=== PATIENT | female | born 1980 | race Caucasian/White ===

== ENCOUNTER 2024-02-24 09:23 | Emergency (ER) | payer OTHER, SELFPAY ==
[2024-02-24 09:26] VITALS: BP 141/83
--- NOTE | 2024-02-24 10:04 | ED.GENMED ---
History of Present Illness
General
Chief Complaint: Abdominal Pain
Source: patient
Exam Limitations: none
Time Seen by Provider: 02/24/24 09:47
Travel History
Have you had any contact with someone who has COVID-19?: No
Do you have any symptoms of coronavirus? Fever > 100 degrees, chills, cough, shortness of breath, sore throat, loss of taste or smell, muscle aches, or headache?: No
History of Present Illness
History of Present Illness:
43-year-old female presents complaining of intermittent epigastric and right upper abdominal pain for the past 3 to 4 days. Sharp stabbing in nature does not radiate to the back. She notes associated nausea and vomiting with loose stools. She
denies any blood in the vomit or the stool. No prior abdominal surgical history. She tried Advil yesterday for the pain but this did not help
Phy Exam
Physical Exam
Physical Exam:
General: Uncomfortable appearing female no acute respiratory distress
HEENT: Normocephalic atraumatic
Heart: Regular rate and rhythm no murmurs
Lungs: CTA bilaterally
Abd: Soft tender to the epigastric and right upper quadrant mildly positive Duarte sign no costovertebral angle tenderness
Extremities: No cyanosis or edema
Course
Orders/Labs/Results
Orders:
Orders
02/24/24 10:02
Famotidine [Pepcid] 40 mg PO NOW STA
Ondansetron Injectable [Zofran] 4 mg IV NOW STA
US Abdomen Complete/Upper Urgent
Comment:
Reason For Exam: abd pain
02/24/24 10:03
0.9% Sodium Chloride 1000 ml [Nss] 1,000 ml IV BOLUS
02/24/24 10:06
Complete Blood Count/With Diff Urgent
Comprehensive Metabolic Panel Urgent
Lipase Urgent
02/24/24 12:07
CT Abd/pelvis W Iv Cont Urgent
Comment:
Reason For Exam: abdominal pain
Ketorolac [Toradol] 15 mg IV NOW STA
02/24/24 13:51
Urinalysis Reflex To Culture Urgent
Date Specimen was Collected: 02/24/24
Time Specimen was Collected: 13:42
Urine Microscopic Reflex Cult Urgent
Abnormal Lab Results
02/24/24 02/24/24
10:06 13:51
WBC 4.7 L 10^3/uL
(4.8-10.8)
RBC 5.49 H 10^6/uL
(4.20-5.40)
Hgb 10.7 L g/dL
(12.0-16.0)
Hct 34.8 L %
(37.0-47.0)
MCV 63.4 L fL
(81.0-99.0)
MCH 19.5 L pg
(27.0-31.0)
MCHC 30.7 L g/dL
(33.0-37.0)
RDW 17.2 H %
(11.5-14.5)
Eosinophils % 6.4 H %
(0-6)
Chloride 108 H mmol/L
(98-107)
Urine Ketones 1+ A
(Negative)
Ur Occult Blood Reflex 3+ A
(Negative)
Leukocyte Esterase Rfl Trace A
(Negative)
Urine RBC 3-6 A /HPF
(0-2)
02/24/24 10:06
02/24/24 10:06
Vital Signs
Initial and Last Documented VS:
Initial Vital Signs
Temp Pulse Resp BP Pulse Ox
97.7 F 80 16 141/83 98
02/24/24 09:26 02/24/24 09:26 02/24/24 09:26 02/24/24 09:26 02/24/24 09:26
Last Documented Vital Signs
Temp Pulse Resp BP Pulse Ox
97.7 F 80 16 141/83 98
02/24/24 09:26 02/24/24 09:26 02/24/24 09:26 02/24/24 09:26 02/24/24 09:26
MDM/Problems Addressed
Differential Diagnosis Includes:
Abdominal pain. Consider gastritis or pancreatitis versus biliary colic versus viral illness
Check labs and lipase. Fluids, zofran Pepcid, ordered. Ultrasound pending
*Critical Care Note
Total Time (30-74mins, 75-104mins- exclusive of procedures): Not Applicable
Update Note
Update Note:
Ultrasound was negative for acute finding. Patient with persistent pain. Did order CT scan of abdomen which also is mostly negative. The appendix was borderline dilated but no secondary signs to suggest appendicitis. On exam patient is nontender
to the right lower quadrant. Do not suspect appendicitis. Patient is feeling a little better after medications here. Suspect possible gastritis versus peptic ulcer disease. Recommend PPI and GI follow-up.
ED Attending Note
-
Portions of this chart may have been created with voice recognition software.� Occasional wrong word or��sound alike� substitutions may have occurred due to the inherent limitations of voice recognition software.
Discharge Plan
Departure
Patient Disposition: Home (Routine Discharge)
Date of Disposition: 02/24/24
Time of Disposition: 15:28
Patient with high blood pressure during this ER visit?: No
Discharge Problem:
Abdominal pain
Instructions: Abdominal Pain
Prescriptions:
New
omeprazole 40 mg capsule,delayed release(DR/EC)
40 mg PO DAILY 14 Days Qty: 14 0RF
ondansetron 4 mg tablet,disintegrating
4 mg PO Q8H PRN (Reason: nausea and vomiting) Qty: 10 0RF
No Action
Vitamins
Decongestant
Referrals:
Shantelle Escalante MD [Active] -
UNKNOWN - PT DOES,NOT KNOW [Family Provider] -
Activity Restrictions/Additional Instructions:
Drink plenty fluids. Continue with bland diet. Use Zofran if needed for nausea. Use omeprazole as prescribed. Return if worse otherwise follow-up with GI
Interventions
Interventions:
*Risk Screen - Suicide Last Done: 02/24/24 13:11
*General Assessment Last Done: 02/24/24 13:11
*Neglect/Abuse Screening Last Done: 02/24/24 13:11
ED- Fall Risk Assessment Last Done: 02/24/24 13:11
*ED COVID-19 Vaccine History Last Done: 02/24/24 09:26
FD-Aetocj-Nheltohtar Assessment Last Done: 02/24/24 11:52
Discharge Date and Time
Print Language: AZERI
[2024-02-24] MEDS: ZOFRAN 4 MG IV (10:49)
[2024-02-24] MEDS: NSS 1000 IV (10:49)
[2024-02-24 11:01] LABS: % Basophils 0.2 % (0-2); % Eosinophils 6.4 % (0-6); % Immature Granulocytes 0.2 % (0-0.5); % Lymphocytes 42.9 % (20.5-51.1); % Monocytes 5.5 % (1.7-9.3); % Neutrophils 44.8 % (42.2-75.2); Absolute Eosinophils 0.3 10^3/uL (0-0.7); Absolute Monocytes 0.3 10^3/uL (0.1-0.6); Absolute Neutrophils 2.1 10^3/uL (1.4-6.5); Hematocrit 34.8 % (37.0-47.0); Hemoglobin 10.7 g/dL (12.0-16.0); Mean Corp Hgb Conc. 30.7 g/dL (33.0-37.0); Mean Corpuscular Hgb 19.5 pg (27.0-31.0); Mean Corpuscular Volume 63.4 fL (81.0-99.0); Mean Platelet Volume 9.8 fL (7.4-10.4); Nucleated Red Blood Cells % 0 %; Platelet Count 374 10^3/uL (130-400); Red Blood Cell Count 5.49 10^6/uL (4.20-5.40); Red Cell Dist. Width 17.2 % (11.5-14.5); White Blood Cell Count 4.7 10^3/uL (4.8-10.8)
[2024-02-24 11:15] LABS: ALT (SGPT) 13 U/L (0-35); AST (SGOT) 19 U/L (14-36); Alkaline Phosphatase 61 U/L (38-126); Blood Urea Nitrogen 9 mg/dl (7-17); Calcium 9.2 mg/dl (8.4-10.2); Carbon Dioxide 23 mmol/L (22-30); Chloride 108 mmol/L (98-107); Glucose 95 mg/dl (70-99); Lipase 89 U/L (23-300); Potassium 4.2 mmol/L (3.5-5.1); Sodium 138 mmol/L (135-145); Total Bilirubin 0.4 mg/dl (0.2-1.3); Total Protein 7.3 g/dl (6.3-8.2); eGFR > 60.00
[2024-02-24] MEDS: PEPCID 40 MG PO (11:42)
[2024-02-24] MEDS: TORADOL 15 MG IV (12:14)
[2024-02-24 14:06] LABS: Urine Albumin Negative (Neg - Trace); Urine Bilirubin Negative (Negative); Urine Character Clear (Clear); Urine Color Yellow; Urine Glucose Negative (Negative); Urine Ketone 1+ (Negative); Urine Leukocyte Trace (Negative); Urine Nitrite Negative (Negative); Urine Occult Blood 3+ (Negative); Urine Specific Gravity 1.015 (<1.030); Urine Urobilinogen Negative (Neg - 1+)
[2024-02-24 14:44] LABS: Urine Squamous Cell >30 /LPF (Few)
[2024-02-24 15:51] VITALS: BP 126/78
== END 2024-02-24 15:52 | disposition home or self-care (01) ==
LOC: EMR 09:23
PROVIDERS: Physician Assistant; EMERGENCY PHYSICIAN Emergency Medicine
DX: R10.11 Right upper quadrant pain (principal); R10.13 Epigastric pain; R11.2 Nausea with vomiting, unspecified; R19.7 Diarrhea, unspecified
CPT/HCPCS: 99285; 96375; 96361; 96374; 74177; 76700; 80053; 81003; 81015; 83690; 85025; Q9967

== ENCOUNTER → 2024-05-23 11:47 | Outpatient (REF) | payer OTHER, SELFPAY ==
[2024-05-23 12:36] LABS: % Basophils 0.2 % (0-2); % Eosinophils 9.2 % (0-6); % Immature Granulocytes 0.2 % (0-0.5); % Lymphocytes 46.3 % (20.5-51.1); % Monocytes 6.8 % (1.7-9.3); % Neutrophils 37.3 % (42.2-75.2); Absolute Eosinophils 0.5 10^3/uL (0-0.7); Absolute Lymphocytes 2.6 10^3/uL (1.2-3.4); Absolute Monocytes 0.4 10^3/uL (0.1-0.6); Absolute Neutrophils 2.1 10^3/uL (1.4-6.5); Hematocrit 32.5 % (37.0-47.0); Hemoglobin 10.2 g/dL (12.0-16.0); Mean Corp Hgb Conc. 31.4 g/dL (33.0-37.0); Mean Corpuscular Hgb 18.9 pg (27.0-31.0); Mean Corpuscular Volume 60.1 fL (81.0-99.0); Mean Platelet Volume 9.6 fL (7.4-10.4); Nucleated Red Blood Cells % 0 %; Platelet Count 323 10^3/uL (130-400); Red Blood Cell Count 5.41 10^6/uL (4.20-5.40); White Blood Cell Count 5.6 10^3/uL (4.8-10.8)
[2024-05-23 13:05] LABS: Blood Urea Nitrogen 11 mg/dl (7-17); Calcium 9.1 mg/dl (8.4-10.2); Carbon Dioxide 22 mmol/L (22-30); Chloride 105 mmol/L (98-107); Glucose 91 mg/dl (70-99); Potassium 4.4 mmol/L (3.5-5.1); Sodium 141 mmol/L (135-145); eGFR > 60.00
== END ==
LOC: REG 11:47
PROVIDERS: ATTENDING PHYSICIAN Orthopaedic Surgery; FAMILY PHYSICIAN Nurse Practitioner
DX: Z01.818 Encounter for other preprocedural examination (principal)
CPT/HCPCS: 36415; 80048; 85025

== ENCOUNTER 2024-06-10 06:22 | Day surgery (SDC) | payer OTHER, SELFPAY ==
--- NOTE | 2024-06-03 15:14 | VNURNOTE ---
Attempted to call patient 06/02 and today to discuss SDS post-op plans. Left message requesting call back both times.
--- NOTE | 2024-06-04 10:58 | VNURNOTE ---
third attempt to contact patient to discuss pending SDS L ERIK. Left message.
--- NOTE | 2024-06-08 12:53 | VNURNOTE ---
Received call back from patient. She is aware of plan for SDS w/ [facility] 06/10 for L ERIK. She will call today for appt at outpt PT- [facility] in [place]. Tentative outpt PT start 06/15. She will obtain a rolling walker today. Instructed to
bring RW with her day of surgery. She confirms her fiance will be there day of surgery to take her home and will be available at home.
Referral accepted in [facility].
[2024-06-10] VITALS (15 sets, daily range): BP systolic 82–137; BP diastolic 49–82; PULSE 87; BMI 39.5
[2024-06-10] MEDS: TYLENOL 650 MG PO ×5 (07:40→23:03)
[2024-06-10] MEDS: BACTROBAN NASAL 1 GRAM NASAL (07:40)
[2024-06-10] MEDS: CELEBREX 200 MG PO (07:41)
--- NOTE | 2024-06-10 08:07 | PTCARENOTE ---
Patient is a difficult IV stick. 1 stick by Ludmila JOINER and unsuccessful. Awaiting IV team to start IV and draw T & S. Will monitor patient.
--- NOTE | 2024-06-10 08:48 | PTCARENOTE ---
IV team sucessfully put IV in but could not get enough blood for T and S. Phlebotomy came up to draw T & S. Will monitor patient.
[2024-06-10] MEDS: NORMOSOL-R/PLASMALYTE-A 1000 IV ×2 (08:49→11:33)
[2024-06-10] MEDS: ZOFRAN 4 MG IV ×2 (10:54→17:02)
[2024-06-10] MEDS: DILAUDID 0.25 MG IV (11:18)
--- NOTE | 2024-06-10 11:30 | W.PN.ORTHO ---
Today's Communication / Plan
-
D/c when clinically stable
Assessment
.
Distal Motor Intact: Yes
Dressing:
Clean, dry and intact.
Assessment:
The patient was initially intended to go home SDS; however, d/t strong FHx of blood clots and post-op anxiety, will admit for further observation
This patient has bandar
L hip OA s/p L ERIK w/ Dr Metz 06/10/24
- s/p R ERIK, 10/2022, at [facility]
DVT prophylaxis - ASA, b/l venous foot pumps
Post-op nausea - Zofran/Compazine prn
- Daily PPI
- Monitor
GERD - daily PPI
Iron def anemia - H&H in AM
- Start oral iron
Strong Fhx of blood clots (brother w/ multiple clots after previous LE surgery, mom - details unclear)
- No personal h/o clotting
- Denies known hematological d/o which would predispose her to clots. Does not recall any family h/o hypercoagulable w/u
- Will reach out to OS re: plasma flow devices
- ASA, frequent and early ambulation
Obesity, BMI 39.5 - would benefit from prophylactic Cefadroxil upon d/c d/t BMI >35
Anxiety
Plan
.
Surgery / Date: L ERIK w/ Dr Metz 06/10/24
DVT Prophylaxis: Aspirin
Activity:
Out of bed.
PT/OT
Discharge Plan: Home w/ Outpatient PT
Subjective
.
.:
Patient resting comfortably in PACU.
L hip pain minimal and currently well tolerated.
Reports 'feeling cold' post-procedure - warm blankets provided.
Mild nausea - IV Zofran provided.
Vital Signs and Labs
.
Vital Signs and Labs:
Temp Pulse Resp BP Pulse Ox
98.2 F 70 11 104/52 100
06/10/24 10:55 06/10/24 11:15 06/10/24 11:15 06/10/24 11:00 06/10/24 11:15
Physical Exam
-
HEENT: No pallor, cyanosis, or jaundice. Throat clear.
NECK: Supple. No JVD.
RESPIRATORY: Lungs clear to auscultation.
CVS: S1, S2 normal. RRR.�
ABDOMEN: Soft, non-tender. No distension. Obese.
EXTREMITIES: Strength equal, no calf pain with palpation/dorsiflexion. Calves soft.
MEDIEVAL ENGLISH LITERATURE PROFESSOR: AOx3. No focal deficits. trestle mechanic grossly intact
[2024-06-10] MEDS: ROXICODONE 5 MG PO (11:52)
[2024-06-10] MEDS: DILAUDID 0.5 MG IV ×3 (12:22→19:55)
--- NOTE | 2024-06-10 12:33 | PTCARENOTE ---
Patient received from PACU in bed; IVF infusing; Left hip primaseal with scant amount of sanguinous drainage; Pedal pulses weak to palpation bilaterally; Patient can lift right leg, left leg trace movement at this time; Mild loss of sensation,
patient describes pins and needle feeling to LLE; Patient denies nausea/vomiting; Patient states pain is severe and increasing, see MAR; Patient on room air; Patient awake and alert to self, place, and time; Bed in lowest position, wheels locked;
Call taylor within reach; Significant other at bedside; Care ongoing
--- NOTE | 2024-06-10 13:29 | CM ---
Reviewed the chart notes and spoke with the patient and her significant other at the bedside. CM consults for VN/homecare and advanced directives received. Provided the patient with a copy of Guide to Healthcare Decisions. VN has already
been in touch with the patient to arrange for services.
The patient resides in a two story home with one step to enter. The patient reports no DME or SNF in past, but had [facility] in the past. The patient confirmed her pharmacy of choice is the [facility]. Patient will be starting
outpatient therapy next week in [place]. CM continues to be available to patient/family and is monitoring medical plan for needs at discharge.
Plan: Discharge to home when medically stable with VN services.
[2024-06-10] MEDS: PROTONIX 40 MG PO (13:37)
[2024-06-10] MEDS: ATIVAN 0.5 MG PO ×2 (13:37→23:03)
[2024-06-10] MEDS: FEOSOL 325 MG PO (13:37)
[2024-06-10] MEDS: LIDOCAINE 4% PATCH 2 PATCH TOPICAL (14:14)
[2024-06-10] MEDS: NEURONTIN 200 MG PO ×3 (14:14→22:20)
[2024-06-10] MEDS: TORADOL 30 MG IV (14:15)
[2024-06-10] MEDS: ANCEF 5 IV ×2 (14:22→22:24)
[2024-06-10] MEDS: ROXICODONE 10 MG PO ×2 (15:13→22:19)
[2024-06-10] MEDS: ASPIRIN 325 MG PO (17:02)
[2024-06-10] MEDS: BACTROBAN 2% OINTMENT 1 APPLIC NASAL (20:02)
[2024-06-10] MEDS: COLACE 100 MG PO (20:03)
[2024-06-10] MEDS: DECADRON 4 MG PO (20:03)
[2024-06-10] MEDS: SENOKOT 17.2 MG PO (20:03)
[2024-06-10] MEDS: CYKLOKAPRON 1300 MG PO (22:20)
[2024-06-11] MEDS: TYLENOL 650 MG PO ×3 (03:47→12:15)
[2024-06-11] MEDS: ROXICODONE 10 MG PO ×2 (03:47→08:05)
[2024-06-11 03:56] VITALS: BP 136/88
[2024-06-11 06:43] LABS: Hemoglobin 8.9 g/dL (12.0-16.0)
[2024-06-11] MEDS: DILAUDID 0.5 MG IV (07:08)
[2024-06-11] MEDS: CYKLOKAPRON 1300 MG PO (07:16)
[2024-06-11] MEDS: ASPIRIN 325 MG PO (07:53)
[2024-06-11] MEDS: COLACE 100 MG PO (07:53)
[2024-06-11] MEDS: VALIUM 2 MG PO (07:53)
[2024-06-11] MEDS: CELEBREX 200 MG PO (07:53)
[2024-06-11] MEDS: SENOKOT 17.2 MG PO (07:53)
[2024-06-11] MEDS: PROTONIX 40 MG PO (07:53)
[2024-06-11] MEDS: NEURONTIN 200 MG PO (07:53)
[2024-06-11] MEDS: LIDOCAINE 4% PATCH 2 PATCH TOPICAL (07:54)
[2024-06-11] MEDS: DECADRON 4 MG PO (07:54)
[2024-06-11] MEDS: FEOSOL 325 MG PO (07:54)
[2024-06-11] MEDS: BACTROBAN 2% OINTMENT 1 APPLIC NASAL (07:54)
[2024-06-11 07:57] VITALS: BP 127/73
[2024-06-11] MEDS: NEURONTIN 100 MG PO (10:04)
[2024-06-11] MEDS: TORADOL 15 MG IV (10:04)
[2024-06-11] MEDS: DILAUDID 2 MG PO (10:04)
--- NOTE | 2024-06-11 10:20 | CM ---
Reviewed the chart notes. Patient for possible discharge today to home. Significant other will provide transportation. CM continues to be available to patient/family and is monitoring medical plan for needs at discharge.
Plan: Discharge to home with [facility] services.
--- NOTE | 2024-06-11 11:52 | W.PN.ORTHO ---
Today's Communication / Plan
-
Continue to monitor pain.
Await PT and OT recs.
D/c later today if remaining clinically stable.
Assessment
.
Distal Motor Intact: Yes
Dressing:
Scant areas of old incisional bleeding.
Assessment:
The patient was initially intended to go home SDS; however, d/t strong FHx of blood clots and post-op anxiety, will admit for further observation
This patient has bandar
L hip OA s/p L ERIK w/ Dr Metz 06/10/24
- s/p R ERIK, 10/2022, at [facility]
DVT prophylaxis - ASA, b/l venous foot pumps
Post-surgical L hip pain - pt does NOT recall pain mgmt after previous R ERIK
- PO Oxycodone switched to PO Dilaudid
- Increase Gabapentin
- Add Toradol, Valium
- Consider long acting opioids
- Continue to monitor
Post-op nausea - improved w/ Zofran/Compazine prn, daily PPI therapy
GERD - daily PPI
Iron def anemia - H&H 10.2 pre-op -> 8.9 POD 1
- Start oral iron
- Asymptomatic, hemodynamically stable
Strong Fhx of blood clots (brother w/ multiple clots after previous LE surgery, mom - details unclear)
- No personal h/o clotting
- Denies known hematological d/o which would predispose her to clots. Does not recall any family h/o hypercoagulable w/u
- inside sales specialist at [facility] aware of this patient. Will reach out to set up plasma flow devices
- ASA, frequent and early ambulation
Obesity, BMI 39.5 - would benefit from prophylactic Cefadroxil upon d/c d/t BMI >35
Anxiety
Plan
.
Surgery / Date: L ERIK w/ Dr Metz 06/10/24
DVT Prophylaxis: Aspirin
Activity:
Out of bed.
PT/OT
Discharge Plan: Home w/ Outpatient PT
Subjective
.
.:
Patient examined sitting in her chair this AM.
L hip pain exacerbated overnight - medications adjusted.
Denies any other new significant complaints.
Vital Signs and Labs
.
Vital Signs and Labs:
Lab Results
06/11/24 05:09
Temp Pulse Resp BP Pulse Ox
98.3 F 90 18 127/73 99
06/11/24 07:57 06/11/24 07:57 06/11/24 07:57 06/11/24 07:57 06/11/24 07:57
Physical Exam
-
HEENT: No pallor, cyanosis, or jaundice. Throat clear.
NECK: Supple. No JVD.
RESPIRATORY: Lungs clear to auscultation.
CVS: S1, S2 normal. RRR.�
ABDOMEN: Soft, non-tender. No distension. Obese.
EXTREMITIES: Strength equal, no calf pain with palpation/dorsiflexion. Calves soft.
ALKYLATION OPERATOR: AOx3. No focal deficits. mash tub cooker grossly intact
[2024-06-11 12:04] VITALS: BP 129/76
[2024-06-11 12:12] VITALS: BP 123/75; BP 129/76; PULSE 83
--- NOTE | 2024-06-11 12:56 | W.DS.TRANS ---
DC Summary - Web Database Developer
-
Discharge Instructions:
Sleep Apnea Risk Low
Discharge Diagnosis/Procedures L hip OA s/p L ERIK w/ Dr Metz 06/10/24
Diet Other diet
Additional Diets Diabetic carb controlled x1 week for wound
healing/infection prevention
Activity As tolerated,With Walker
Driving Restrictions Not until seen by your Dr
Bathing Restrictions OK to Shower
Other Services PT,VN
Wound Care Dressing to be removed 1 week post-surgery.
[place] to be removed in 2 weeks at surgeon's
office.
Instructions:
Stand-Alone Forms: Total Hip/Knee Replacement D/C
Changes to Home Medications: Yes
Discharge Medications:
DC Medications w/original date entered in [employer]
methylphenidate HCl 36 mg tablet,extended release 24 hr (Concerta) 36 mg PO DAILY 06/04/24
mupirocin 2 % topical ointment 1 applic topical BID 06/04/24
Saccharomyces boulardii 250 mg capsule (Florastor) 250 mg PO BID #14 caps 06/10/24
acetaminophen 500 mg tablet (Tylenol Extra Strength) 1,000 mg (2 x 500 mg) PO Q6H #60 tabs 06/10/24
aspirin 325 mg tablet 325 mg PO DAILY #30 tabs 06/10/24
cefadroxil 500 mg capsule 500 mg PO BID #14 caps 06/10/24
celecoxib 100 mg capsule (Celebrex) 100 mg PO BID #30 caps 06/10/24
dexamethasone 4 mg tablet 4 mg PO Q12H Anti-inflammatory #7 tabs 06/10/24
docusate sodium 100 mg capsule (Colace) 100 mg PO BID #30 caps 06/10/24
omeprazole magnesium 20 mg tablet,delayed release (Prilosec OTC) 20 mg PO DAILY #1 tab 06/10/24
ondansetron HCl 4 mg tablet 4 mg PO Q6H PRN nausea and vomiting #30 tabs 06/10/24
sennosides 8.6 mg tablet (senna) 17.2 mg (2 x 8.6 mg) PO BID #30 tabs 06/10/24
diazepam 2 mg tablet 2 mg PO BID PRN muscle spasms/anxiety #10 tabs 06/11/24
ferrous sulfate 325 mg (65 mg iron) tablet (FeroSul) 325 mg PO DAILY #30 tabs 06/11/24
gabapentin 300 mg capsule 300 mg PO TID neuropathic pain #15 caps 06/11/24
hydromorphone 2 mg tablet 2 - 4 mg (1 - 2 x 2 mg) PO Q4H PRN moderate-severe pain #30 tabs 06/11/24
lidocaine 4 % topical patch 2 patch topical DAILY #30 ea 06/11/24
Home Medication Changes
acetaminophen 500 mg tablet (Tylenol Extra Strength) 1,000 mg (2 x 500 mg) PO Q6H #60 tabs 06/10/24
aspirin 325 mg tablet 325 mg PO DAILY #30 tabs 06/10/24
cefadroxil 500 mg capsule 500 mg PO BID #14 caps 06/10/24
celecoxib 100 mg capsule (Celebrex) 100 mg PO BID #30 caps 06/10/24
dexamethasone 4 mg tablet 4 mg PO Q12H Anti-inflammatory #7 tabs 06/10/24
docusate sodium 100 mg capsule (Colace) 100 mg PO BID #30 caps 06/10/24
omeprazole magnesium 20 mg tablet,delayed release (Prilosec OTC) 20 mg PO DAILY #1 tab 06/10/24
ondansetron HCl 4 mg tablet 4 mg PO Q6H PRN nausea and vomiting #30 tabs 06/10/24
sennosides 8.6 mg tablet (senna) 17.2 mg (2 x 8.6 mg) PO BID #30 tabs 06/10/24
diazepam 2 mg tablet 2 mg PO BID PRN muscle spasms/anxiety #10 tabs 06/11/24
ferrous sulfate 325 mg (65 mg iron) tablet (FeroSul) 325 mg PO DAILY #30 tabs 06/11/24
gabapentin 300 mg capsule 300 mg PO TID neuropathic pain #15 caps 06/11/24
hydromorphone 2 mg tablet 2 - 4 mg (1 - 2 x 2 mg) PO Q4H PRN moderate-severe pain #30 tabs 06/11/24
lidocaine 4 % topical patch 2 patch topical DAILY #30 ea 06/11/24
Pending Results: No
== END 2024-06-11 14:41 | disposition home health service (06) ==
LOC: SDS 06:22
PROVIDERS: Physician Assistant; ATTENDING PHYSICIAN Orthopaedic Surgery; FAMILY PHYSICIAN Nurse Practitioner
DX: M16.12 Unilateral primary osteoarthritis, left hip (principal)
CPT/HCPCS: 27130; 73502; 85014; 85018; 86850; 86900; 86901; 87070; 97110; 97116; 97162; 97166; 97530; 97535; C1776

== ENCOUNTER 2024-08-25 15:20 | Inpatient (IN) | payer OTHER, SELFPAY ==
[2024-08-25 12:45] VITALS: BP 124/82; BP_SYST 72
[2024-08-25 13:20] VITALS: BP 127/80
[2024-08-25 13:41] LABS: % Basophils 0.4 % (0-2); % Eosinophils 1.8 % (0-6); % Immature Granulocytes 0.4 % (0-0.5); % Lymphocytes 41.5 % (20.5-51.1); % Monocytes 7.3 % (1.7-9.3); % Neutrophils 48.6 % (42.2-75.2); Absolute Eosinophils 0.1 10^3/uL (0-0.7); Absolute Lymphocytes 2.1 10^3/uL (1.2-3.4); Absolute Monocytes 0.4 10^3/uL (0.1-0.6); Absolute Neutrophils 2.5 10^3/uL (1.4-6.5); Hematocrit 31.9 % (37.0-47.0); Hemoglobin 9.5 g/dL (12.0-16.0); Mean Corp Hgb Conc. 29.8 g/dL (33.0-37.0); Mean Corpuscular Hgb 18.1 pg (27.0-31.0); Mean Corpuscular Volume 60.9 fL (81.0-99.0); Mean Platelet Volume 9.5 fL (7.4-10.4); Nucleated Red Blood Cells % 0 %; Platelet Count 481 10^3/uL (130-400); Red Blood Cell Count 5.24 10^6/uL (4.20-5.40); Red Cell Dist. Width 18.6 % (11.5-14.5); White Blood Cell Count 5.1 10^3/uL (4.8-10.8)
[2024-08-25 13:56] LABS: Erythrocyte Sed Rate 27 mm/hour (0-20)
[2024-08-25 14:58] LABS: ALT (SGPT) 17 U/L (0-35); AST (SGOT) 23 U/L (14-36); Albumin 4.4 g/dl (3.5-5.0); Alkaline Phosphatase 60 U/L (38-126); Blood Urea Nitrogen 5 mg/dl (7-17); Calcium 9.4 mg/dl (8.4-10.2); Carbon Dioxide 26 mmol/L (22-30); Chloride 102 mmol/L (98-107); Glucose 106 mg/dl (70-99); Potassium 4.7 mmol/L (3.5-5.1); Sodium 139 mmol/L (135-145); Total Bilirubin 0.3 mg/dl (0.2-1.3); Total Protein 7.6 g/dl (6.3-8.2); eGFR > 60.00
[2024-08-25 15:17] LABS: C-Reactive Protein < 5.00 mg/L (0.0-10.00)
[2024-08-25 15:30] VITALS: BP 118/82
--- NOTE | 2024-08-25 15:51 | W.PN.UPDATE ---
Update Note
Progress Note Update
Pt seen by me and radha rojas earlier today for sudden drainage of pus from her wound s/p total hip by me at 06/10/24. She did not have significant recent hip pain postop and recovered very well after the surgery. The onset of the drainage
today was completely unexpected. She denies signs of systemic sepsis.
I recommended urgent labs and hip aspiration with high degree of concern for prosthetic joint infection.
She has had the hip aspiration with no fluid yield from the hip joint. Some fluid was apirated from the superficial incision.
Her crp is <5 and sed rate 27,.
At this point she should be admitted to for I&D of her wound at a bare minimum. Also assessment of possible PJI will be made at that time and if so she would need hip revision surgery.
a ct scan will be helpful to acertain if there is an abcess and if so is it superficial or communicating with the joint.
I went over this in a preliminary manner in the office but since it's a lot to digest we will speak w. her more in the am as more data comes in. She should be NPO p mn for surgery tomorrow and no chemical anticoagulation at this time.
Greatly appreciate the hospitalist Dr. Enriquez willingness to admit patient. She may benefit from ID consult and antibiotics can be per their preference, either now or wait till more intraop cultures. Of note this patient has not been on abx
since the surgery 2+ months ago.
--- NOTE | 2024-08-25 16:21 | HPS.HSE ---
Addendum entered and electronically signed by Zoe Lerma MD 08/25/24 16:29:
Patient has a history of anemia since her prior right hip surgery. She has had intermittent rectal bleeding thought to be hemorrhoidal but no bleeding within the past week. There is plan for outpatient endoscopy.
Original Note:
Family Physician
-
Family Physician: Miller Metz
Chief Complaint
-
infected hip
History of Present Illness
44-year-old female past medical history of arthritis of the left hip status post left total hip replacement by Dr. Metz on 06/10/2024, ADHD, iron deficiency anemia, ongoing rectal bleeding likely hemorrhoidal, obesity, GERD, presenting with
concern for postoperative wound infection of the left hip.
Patient underwent total left hip replacement by Dr. Metz on 06/10. She was told her recovery would be slow due to severe arthritis. Over the past 2 days she has noticed that the wound site has become red, swollen. Today serosanguineous fluid
was draining out of the wound. She denies any fevers or chills. She denies any numbness or tingling or focal weakness of the lower extremity.
Strong family history of blood clots with brother with multiple clots.
She drinks alcohol occasionally. She occasionally smokes.
Medical History
Past Medical History
Past Medical History: Reports Other (left hip status post left total hip replacement by Dr. Metz on 06/10/2024, ADHD, iron deficiency anemia, ongoing rectal bleeding likely hemorrhoidal, obesity, GERD,)
Past Surgical History: Reports Other (hip replacements bilterally, c section )
Social History
Tobacco: Non-smoker
Alcohol: Occasional
Drug: None
Family History
Family History: Not pertinent
Allergies / Home Medications
Allergies reflects when Allergies were last updated in [employer].
Home Medications with original date entered in [employer]
Allergy/Medication List:
Allergies
Allergy/AdvReac Type Severity Reaction Status Date / Time
mushroom Allergy Hives Verified 06/10/24 07:33
Home Medications
methylphenidate HCl 36 mg tablet,extended release 24 hr (Concerta) 36 mg PO DAILY 06/04/24
mupirocin 2 % topical ointment 1 applic topical BID 06/04/24
Saccharomyces boulardii 250 mg capsule (Florastor) 250 mg PO BID #14 caps 06/10/24
acetaminophen 500 mg tablet (Tylenol Extra Strength) 1,000 mg (2 x 500 mg) PO Q6H #60 tabs 06/10/24
aspirin 325 mg tablet 325 mg PO DAILY #30 tabs 06/10/24
cefadroxil 500 mg capsule 500 mg PO BID #14 caps 06/10/24
celecoxib 100 mg capsule (Celebrex) 100 mg PO BID #30 caps 06/10/24
dexamethasone 4 mg tablet 4 mg PO Q12H Anti-inflammatory #7 tabs 06/10/24
docusate sodium 100 mg capsule (Colace) 100 mg PO BID #30 caps 06/10/24
omeprazole magnesium 20 mg tablet,delayed release (Prilosec OTC) 20 mg PO DAILY #1 tab 06/10/24
ondansetron HCl 4 mg tablet 4 mg PO Q6H PRN nausea and vomiting #30 tabs 06/10/24
sennosides 8.6 mg tablet (senna) 17.2 mg (2 x 8.6 mg) PO BID #30 tabs 06/10/24
diazepam 2 mg tablet 2 mg PO BID PRN muscle spasms/anxiety #10 tabs 06/11/24
ferrous sulfate 325 mg (65 mg iron) tablet (FeroSul) 325 mg PO DAILY #30 tabs 06/11/24
gabapentin 300 mg capsule 300 mg PO TID neuropathic pain #15 caps 06/11/24
hydromorphone 2 mg tablet 2 - 4 mg (1 - 2 x 2 mg) PO Q4H PRN moderate-severe pain #30 tabs 06/11/24
lidocaine 4 % topical patch 2 patch topical DAILY #30 ea 06/11/24
Review of Systems
-
History Source: Patient
A 12 point ROS was completed and negative except as noted: Yes
Constitutional: Reports No Symptoms
EENT: Reports No Symptoms
Respiratory: Reports No Symptoms
Cardiac: Reports No Symptoms
Abdomen/GI: Reports No Symptoms
: Reports No Symptoms
Musculoskeletal: Reports See HPI
Skin: Reports No Symptoms
Neurological: Reports No Symptoms
Endocrine: Reports No Symptoms
Hematologic/Lymphatic: Reports No Symptoms
Psych: Reports No Symptoms
Physical Exam
Vital Signs
Vital Signs
Temp Pulse Resp BP Pulse Ox
98.4 F 67 20 127/80 100
08/25/24 12:45 08/25/24 13:20 08/25/24 13:20 08/25/24 13:20 08/25/24 12:45
Physical Exam
General: Well Developed, Well Nourished and No Apparent Distress
HEENT: NormoCephalic, Moist mucous membranes and Atraumatic
Respiratory: Clear
Cardiac: S1/S2 and Regular Rhythm; No Murmur or Rub
GI: Soft, Non Tender, Non Distended and Normal Bowel Sounds; No Organomegaly
Rectal: Deferred by Provider
Musculoskeletal: No Clubbing, No Cyanosis and No Edema
Skin: No Rash
Neuro: Nonfocal/grossly intact
Laboratory Results
-
08/25/24 13:13
08/25/24 13:13
Laboratory Results
Total Bilirubin 0.3 mg/dl (0.2-1.3) 08/25/24 13:13
AST 23 U/L (14-36) 08/25/24 13:13
ALT 17 U/L (0-35) 08/25/24 13:13
Alkaline Phosphatase 60 U/L (38-126) 08/25/24 13:13
Data Reviewed
-
Lab Data: Labs Reviewed by me
Old Records: Reviewed
Impression/Plan
-
IMPRESSION:
PLAN:
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
# Left hip osteoarthritis status post total hip replacement on 06/10
-Patient underwent aspiration of hip but fluid from the joint was not obtained, superficial fluid adjacent to the incision was obtained
-Await fluid studies
-N.p.o. past midnight for irrigation and debridement by Ortho tomorrow
-X-ray, CT scan per Ortho
-Hold off antibiotics for now likely until intraoperative cultures can be obtained
-ID consulted and recommended holding off antibiotics for now and if patient becomes septic then check 2 blood cultures and then vancomycin/cefepime
-Tylenol, continue Dilaudid for pain as needed
History of iron deficiency anemia
-Hemoglobin 9.5 better than recent times
-Plan for outpatient colonoscopy
History of occasional rectal bleeding likely hemorrhoidal
-No bleeding in the past week
History of constipation
ADHD
-Continue Concerta
Strong family history of blood clots
Obesity
GERD
-Continue omeprazole
Full code
DVT prophylaxis�SCDs
N.p.o. past midnight
[2024-08-25] MEDS: DILAUDID 0.5 MG IV (18:39)
--- NOTE | 2024-08-25 19:13 | CON.ORTHO ---
Consultation
-
Date/Time Consultation Requested: N/a
Date/Time Consultation Performed: 08/25/2024
Requesting Provider: n/a
Performing Provider: Eunice Crisostomo PA-C, for Dr. Miller Metz
Reason for Consultation: L hip drainage from incision s/p left ERIK
Consultation - Orthopedics
History
HPI: Juju is a 44 year old female who presented to our outpatient office earlier this morning complaining of sudden onset drainage from her left hip now s/p left ERIK on 06/10/2024. This was performed under the direction of Dr. Metz at [place] [facility]. She reports pain and swelling in the lateral aspect of her hip that has been present since the surgery. Last night, she experienced a puffy area about the incision and this morning noted a copious about of pinkish drainage from a
pinpoint area in the incision. She immediately presented to our office and was noted to have purulent drainage oozing from the incision. She denies any pain in the groin, fevers, chills, or flu like symptoms. She was sent urgently for IR
aspiration of the hip as well as labs. Due to the copious amount of drainage, she was advised to present to the hospital for admission and further work up for possible PJI.
PMH: Significant for chronic anemia, obesity, anxiety.
PSHx: L ERIK 06/10/24, R ERIK 2022, c section.
Social history: Lives with spouse. Denies tobacco use.
Family history: significant for DVT/PE in brother post operatively.
Review of systems: All systems reviewed and negative except for those mentioned in HPI.
Allergies / Home Medications
Allergy/AdvReac Type Severity Reaction Status Date / Time
mushroom Allergy Hives/SWELL Verified 08/25/24 18:39
ING;
�Medication �Instructions �Recorded
methylphenidate HCl 36 mg 36 mg PO DAILY 06/04/24
tablet,extended release 24 hr
(Concerta)
mupirocin 2 % topical ointment 1 applic topical BID 06/04/24
Saccharomyces boulardii 250 mg 250 mg PO BID #14 caps 06/10/24
capsule (Florastor)
acetaminophen 500 mg tablet 1,000 mg (2 x 500 mg) PO Q6H #60 06/10/24
(Tylenol Extra Strength) tabs
aspirin 325 mg tablet 325 mg PO DAILY #30 tabs 06/10/24
cefadroxil 500 mg capsule 500 mg PO BID #14 caps 06/10/24
celecoxib 100 mg capsule (Celebrex) 100 mg PO BID #30 caps 06/10/24
dexamethasone 4 mg tablet 4 mg PO Q12H Anti-inflammatory #7 06/10/24
tabs
docusate sodium 100 mg capsule 100 mg PO BID #30 caps 06/10/24
(Colace)
omeprazole magnesium 20 mg 20 mg PO DAILY #1 tab 06/10/24
tablet,delayed release (Prilosec
OTC)
ondansetron HCl 4 mg tablet 4 mg PO Q6H PRN nausea and 06/10/24
vomiting #30 tabs
sennosides 8.6 mg tablet (senna) 17.2 mg (2 x 8.6 mg) PO BID #30 06/10/24
tabs
diazepam 2 mg tablet 2 mg PO BID PRN muscle 06/11/24
spasms/anxiety #10 tabs
ferrous sulfate 325 mg (65 mg 325 mg PO DAILY #30 tabs 06/11/24
iron) tablet (FeroSul)
gabapentin 300 mg capsule 300 mg PO TID neuropathic pain #15 06/11/24
caps
hydromorphone 2 mg tablet 2 - 4 mg (1 - 2 x 2 mg) PO Q4H PRN 06/11/24
moderate-severe pain #30 tabs
lidocaine 4 % topical patch 2 patch topical DAILY #30 ea 06/11/24
Vital Signs / Lab Results
Temp Pulse Resp BP Pulse Ox
98.6 F 87 20 118/82 99
08/25/24 15:30 08/25/24 15:30 08/25/24 15:30 08/25/24 15:30 08/25/24 15:30
08/25/24 13:13
08/25/24 13:13
Physical examination:
General: AAO x 4, NAD at rest.
HEENT: AT/NC, neck supple.
Heart: RRR.
Lungs: non labored breathing on room air, no audible wheezing.
Left hip: mild diffuse swelling. No erythema or warmth. Pinpoint spot in proximal incision with active purulent drainage. ROM hip without pain. Limping gait, no use of assistive device.
Assessment / Plan
Assessment: Left hip drainage from incision, concern for PJI
Plan: Unfortunately, there was a copious amount of purulent drainage from Lacy's left hip incision today. She was sent for IR aspiration and no fluid was obtained from the joint and minimal fluid obtained from a small soft tissue collection. This
was sent for culture and sensitivity. Lab work revealed mildly elevated ESR and normal CRP. Regardless of these findings, there is a strong concern for PJI. She will be admitted to the hospitalists service and placed on the OR schedule for a left
hip possible I&D vs. revision left ERIK tomorrow under the direction of Dr. Metz. A left hip x-ray and CT scan w/wo contrast was ordered to evaluate for possible abscess or joint communication with the fluid obtained from the soft tissues
earlier. She will be NPO after midnight tonight. IV irrigation and TXA ordered and event management consultant to OR. ID has been consulted for recommendations on antibiotics going forward. Will hold on any DVT prophylaxis until after surgery. January WBAT. Consent
for surgery to be obtained tomorrow AM. Patient was updated with findings and all questions were answered.
[2024-08-25 23:20] VITALS: BP 117/70
[2024-08-26] VITALS (15 sets, daily range): BP systolic 91–134; BP diastolic 65–79; BMI 38.2
[2024-08-26] MEDS: DILAUDID 0.5 MG IV ×5 (00:55→21:31)
--- NOTE | 2024-08-26 06:05 | W.PN.UPDATE ---
Update Note
Progress Note Update
Patient seen and evaluated by Orthopedic surgery this morning. Plan for LEFT hip I&D, possible revision of LEFT total hip arthroplasty today under the direction of Dr. Metz.
Surgical and blood consents obtained and placed in patient's chart. CT scan completed.
Preliminary Gram stain revealing no WBC, no organisms seen. Culture pending.
IV irrigation and TXA ordered and eye care professional to OR. ID has been consulted for recommendations on antibiotics going forward. LEFT hip marked as the correct surgical extremity.
Orthopedic surgery will continue to follow.
[2024-08-26 07:03] LABS: Hematocrit 30.2 % (37.0-47.0); Hemoglobin 8.8 g/dL (12.0-16.0); Mean Corp Hgb Conc. 29.1 g/dL (33.0-37.0); Mean Corpuscular Hgb 17.7 pg (27.0-31.0); Mean Corpuscular Volume 60.9 fL (81.0-99.0); Platelet Count 419 10^3/uL (130-400); Red Blood Cell Count 4.96 10^6/uL (4.20-5.40); Red Cell Dist. Width 18.2 % (11.5-14.5); White Blood Cell Count 4.7 10^3/uL (4.8-10.8)
[2024-08-26 07:22] LABS: ALT (SGPT) 15 U/L (0-35); AST (SGOT) 19 U/L (14-36); Albumin 3.7 g/dl (3.5-5.0); Alkaline Phosphatase 42 U/L (38-126); Blood Urea Nitrogen 8 mg/dl (7-17); Calcium 8.7 mg/dl (8.4-10.2); Carbon Dioxide 24 mmol/L (22-30); Chloride 101 mmol/L (98-107); Glucose 125 mg/dl (70-99); Potassium 4.1 mmol/L (3.5-5.1); Sodium 135 mmol/L (135-145); Total Bilirubin 0.3 mg/dl (0.2-1.3); Total Protein 6.6 g/dl (6.3-8.2); eGFR > 60.00
[2024-08-26 07:38] LABS: % Basophils 0.2 % (0-2); % Eosinophils 2.8 % (0-6); % Immature Granulocytes 0.4 % (0-0.5); % Lymphocytes 55.6 % (20.5-51.1); % Monocytes 7.4 % (1.7-9.3); % Neutrophils 33.6 % (42.2-75.2); Absolute Eosinophils 0.1 10^3/uL (0-0.7); Absolute Lymphocytes 2.6 10^3/uL (1.2-3.4); Absolute Monocytes 0.4 10^3/uL (0.1-0.6); Absolute Neutrophils 1.6 10^3/uL (1.4-6.5); Nucleated Red Blood Cells % 0 %
--- NOTE | 2024-08-26 09:42 | CM ---
Reviewed the chart notes and spoke with the patient and her spouse at the bedside. The patient anticipates going to the OR today for LEFT hip I&D, possible revision of LEFT total hip arthroplasty today under the direction of Dr. Metz. The
patient had hip replacement 06/2024. The patient resides with her spouse in a two story home with two steps to enter. The patient reports having a cane and rolling walker in the home. The patient has had [facility] in the past, but no SNF. The
patient confirmed her pharmacy of choice is the [facility] [address] and her PCP is LUIS Sosa. CM continues to be available to patient/family and is monitoring medical plan for needs at discharge.
Plan: Discharge plans will depend on the patient's progress.
--- NOTE | 2024-08-26 12:19 | W.PN.HOSP.TC ---
Today's Communication/Plan
-
see outlined plan
Assessment / Plan
Assessment / Plan
Assessment:
L hip drainage c/f post-operative L hip infection and/or infected prosthesis
Hx of L hip OA s/p THR 06/10 (Dr. Metz)
- CT: Limited by metal artifact despite metal artifact reduction technique. Mild fluid distention of the greater trochanteric bursa. This demonstrates mild wall thickening, though without apparent significant enhancement. This may be reactive in
nature as opposed to infectious bursitis. Irregular linear soft tissue attenuation within the superficial and deep subcutaneous fat extending to the superficial fascial layer, consistent with scarring along the incision site. No other soft tissue
fluid collection is identified. No CT evidence to suggest osteomyelitis.
- bedside aspiration - reportedly no fluid from joint but superficial fluid obtained - awaiting culture
- NPO today for L hip I&D - operative cultures will be obtained. Discussed with Ortho.
- ID consulted for antibiotic management
- continue pain control
History of iron deficiency anemia
History of occasional rectal bleeding likely hemorrhoidal
- follow Hb, 8.8 most recently
- check anemia indices
- outpatient Colonoscopy planned
History of constipation
ADHD
- continue Concerta
Strong family history of blood clots
Obesity
GERD
- continue omeprazole
DVT ppx: SCDs
Code: Full
Anticipated Discharge: > 48 hours
Subjective/Interval History
-
Date of Service: August 26, 2024
reports L hip pain and stiffness
no fever/chills
Objective Data
-
Labs:
Laboratory Results
08/26/24
06:17
WBC 4.7 L
Hgb 8.8 L
Hct 30.2 L
Plt Count 419 H
Sodium 135
Potassium 4.1
Chloride 101
Carbon Dioxide 24
BUN 8
Creatinine 0.6
Glucose 125 H
Calcium 8.7
Total Bilirubin 0.3
AST 19
ALT 15
Alkaline Phosphatase 42
Vital Signs:
Vital Signs
Temp Pulse Resp BP Pulse Ox
97.8 F 71 18 120/75 99
08/26/24 07:49 08/26/24 07:49 08/26/24 07:49 08/26/24 07:49 08/26/24 07:49
I&O
08/25/24 08/26/24 08/27/24
06:59 06:59 06:59
Intake Total 1200 / 1200
Balance 1200 / 1200
Physical Exam
-
General: No Apparent Distress
HEENT: Normocephalic and Atraumatic
Respiratory: Negative Wheezes
Cardiac: Regular Rhythm and S1/S2
GI: Soft
Genito-urinary: No Costovertebral Tender
Musculoskeletal: Other (mild diffuse swelling. No erythema or warmth. Pinpoint spot in proximal incision with active purulent drainage. ROM hip without pain. Limping gait, no use of assistive device. )
Neuro: AO x 3
Hematologic / Lymphatic: No Lymphadenopathy
Data Reviewed
-
Total Time Spent with Patient (in minutes): 51
Labs: Labs Reviewed by me
[2024-08-26 13:20] LABS: Total Iron Binding Capacity 410 ug/dl (265-497)
--- NOTE | 2024-08-26 13:27 | W.PN.UPDATE ---
Update Note
Progress Note Update
I had a length counselling and q/a w. patient and her significant other. I described how the drainage is almost certainly indicative of infection even though aspiration is no growth. I discussed how infection in a prosthesis cannot be cured by
abx alone and surgical treatment is required and this could be I&D for a superficial infection or removal of the hardware for a deep infection. I discussed abx spacers and one stage revision and the pros and cons. Since aspiration of the joint
yeilded no fluid and ct scan shows no joint fluid I will only know if the total hip is involved after I get started w. surgery . She expressed consent to proceed as I deep appropriate intraop. All questions answered during this approx 30 min
session.
[2024-08-26 13:43] LABS: Iron < 20 ug/dl (37-170)
--- NOTE | 2024-08-26 14:37 | CON.ID ---
Consultation
-
Date/Time Consultation Requested: 08/25/24 16:25
Date/Time Consultation Performed: 08/26/24 14:38
Requesting Provider: Dr Lerma
Performing Provider: Dr Conh
Reason for Consultation: suspected PJI
Chief Complaint / Past History
Chief Complaint
probable PJI
History of Present Illness
Ms Delvalle is a 44 year old female with history of class II obesity history of L hip arthritis who is s/p L total hip replacement 06/10/24 there were no immediate complications however over the last two day the wound site became red, swollen and had
some bloody drainage. She covered the count and contacted her orthopedist Dr Metz and was seen in his office the next day. She noted swelling and pain in the L hip - no fevers or chills.
Since arrival here she has been afebrile, bp stable, wbc initially 5.1 and today 4.7, hgb 8.8, plt 419, no L shift, esr 27, na 135, cr 0.6, t bili 0.3, ast 23, alt 17, alk phos 60, 08/25 aspiration of the right hip - no fluid and with lavage no
sample. Superficial fluid collection aspiration with no wbc and no organisms, 08/25 CT lower extremity without contrast: 'Mild fluid distention of the greater trochanteric bursa. This demonstrates mild wall thickening, though without apparent
significant enhancement. This may be reactive in nature as opposed to infectious bursitis.' she was taken today for I&D and a superficial wound cavity was encountered without evidence of tracking deeper, tissue culture sent from the OR
Past History
Additional Past Medical History:
left hip status post left total hip replacement by Dr. Metz on 06/10/2024, ADHD, iron deficiency anemia, ongoing rectal bleeding likely hemorrhoidal, obesity, GERD
Additional Past Surgical History:
hip replacements bilterally, c section
Allergy History:
mushroom Allergy (Verified 08/25/24 18:39)
Hives/SWELLING;
Medications Reviewed: Yes
Social History
Tobacco: Non-Smoker
Alcohol: Occasional
Drug: None
Family History
Family History: Not Pertinent
Review of Systems
Review of Systems
General: Negative Fever or Chills
All systems: All other systems were reviewed and were negative
Vital Signs
Temp Pulse Resp BP Pulse Ox
97.8 F 71 18 120/75 99
08/26/24 07:49 08/26/24 07:49 08/26/24 07:49 08/26/24 07:49 08/26/24 07:49
Physical Exam
Physical Exam
Constitutional: No Acute Distress
Cardiovascular: Regular Rate and S1/S2; Negative Murmur or Rub
Pulmonary: Clear and Symmetric; Negative Wheezes, Rales or Rhonchi
Gastrointestinal: Soft, Non Tender, Non Distended and Normal Bowel Sounds
Skin: Warm and Dry; Negative Rash or Jaundice
Wound: Other (dressing with small amount of strikethrough)
Lab / Diagnostic Study Results
08/26/24 06:17
08/26/24 06:17
Abs Immat Gran (auto) 0.0 10^3/uL (0-0.05) 08/26/24 06:17
Absolute Neuts (auto) 1.6 10^3/uL (1.4-6.5) 08/26/24 06:17
Absolute Lymphs (auto) 2.6 10^3/uL (1.2-3.4) 08/26/24 06:17
Absolute Monos (auto) 0.4 10^3/uL (0.1-0.6) 08/26/24 06:17
Absolute Basos (auto) 0.0 10^3/uL (0-0.2) 08/26/24 06:17
Immature Gran % 0.4 % (0-0.5) 08/26/24 06:17
Neutrophils % 33.6 % (42.2-75.2) L 08/26/24 06:17
Lymphocytes % 55.6 % (20.5-51.1) H 08/26/24 06:17
Monocytes % 7.4 % (1.7-9.3) 08/26/24 06:17
Eosinophils % 2.8 % (0-6) 08/26/24 06:17
Basophils % 0.2 % (0-2) 08/26/24 06:17
ESR 27 mm/hour (0-20) H 08/25/24 13:13
C-Reactive Protein < 5.00 mg/L (0.0-10.00) 08/25/24 13:13
Microbiology Results
Micro:
08/25/24 12:45 Body Fluid Culture - Preliminary
Fluid No Growth After 18-24 Hours
Gram Stain - Preliminary
Assessment / Plan
Superficial Surgical Site Infection
Class II obesity
- cultures sent from the OR will follow up
- aspiration of the hip joint - no fluid even with lavage - not suggestive of pji
- aspiration of more superficial fluid collection - no growth to date
- start vancomycin and cefepime
follow clinically
[2024-08-26 15:22] LABS: Ferritin 6.9 ng/ml (6.24-137)
--- NOTE | 2024-08-26 15:48 | W.PN.UPDATE ---
Update Note
Progress Note Update
The surgery is complete the infection was definitively in the superficial layer of sutures. I completely excised it to a circumferential layer of healthy tissue with no deep communication to the joint. I did not open the joint or fascia so as not
to risk contamination of the prosthesis. this is consistent w. no fluid on aspiration and also no joint fluid on ct scan and also not much pain in the hip and also crp <5. I sent 3 superficial cultures from the superficial wound cavity and
these were sent prior to abx.
[2024-08-26 15:53] LABS: Folate 8.8 ng/ml (2.76-20); Vitamin B12 963 pg/ml (239-931)
[2024-08-26] MEDS: ROXICODONE 5 MG PO (16:48)
--- NOTE | 2024-08-26 17:00 | PTCARENOTE ---
pt received from PACU in bed, c/o 06/18 pain. dressing to left hip site is intact with a small amount of drainage which is demarcated. pt is alert and responsive with no other complaints besides pain
[2024-08-26] MEDS: NORMOSOL-R/PLASMALYTE-A 1000 IV (17:13)
[2024-08-26] MEDS: MAXIPIME 1000 MG IV (17:35)
[2024-08-26] MEDS: STERILE WATER FOR INJECTION 10 ML IV (17:35)
[2024-08-26] MEDS: VANCOCIN 540 MG IV (18:17)
[2024-08-26] MEDS: SENOKOT 17.2 MG PO (19:20)
[2024-08-26] MEDS: BACTROBAN 2% OINTMENT 1 APPLIC NASAL (19:20)
[2024-08-26] MEDS: COLACE 100 MG PO (19:20)
--- NOTE | 2024-08-26 19:23 | PHA.VAN.IN ---
Assessment
- Assessment
Renal Function: Appears similar to baseline
Concomitant Antimicrobials: cefepime
AUC Dosing Plan
- Dosing Variables
Dosing Weight (kg): 102
Dosing CrCl (ml/min): 100
Vd coefficient (L/kg): 0.6
- Empiric Dosing
Initial / Loading Dose: 2000 mg - given ~ 1800 08/26/24
Maintenance Regimen: 1250 mg q12h - to start 0600 08/27/24
Estimated AUC (mcg*h/mL): 498
Estimated Peak (mcg*h/mL): 31.4
Estimated Trough (mcg/ml): 12.6
Estimated Half Life (H): 7.9
- Monitoring
No levels ordered at this time: consider levels in a few days
Pharmacokinetics Vancomycin I
- -
Patient Age: 44
Patient Sex: Female
Vancomycin Day #: 1
Indication: Bone And Joint
Requesting Provider: Lalit
Pertinent Antimicrobial Allergies:
mushroom - hives/swelling
Height / Weight:
Height 5 ft 4.5 in
Actual Weight 102.512 kg
IBW in k.9
Adjusted BW in k.5 ( BMI~38)
Pertinent Past Medical History: s/p total hip replacement 06/10/24
- Vital Signs / Lab Results
Temp Pulse Resp BP Pulse Ox
99.7 F 71 18 98/74 100
08/26/24 18:28 1824 18:28 24 18:28 08/26/24 18:28 08/26/24 18:28
Lab Results - Hematology
08/25/24 08/26/24
13:13 06:17
WBC 5.1 4.7 L
Lab Results - Chemistry
08/25/24 08/26/24
13:13 06:17
BUN 5 L 8
Creatinine 0.6 0.6
Albumin 4.4 3.7
Microbiology Results
08/25/24 12:45 Body Fluid Culture - Preliminary
Fluid No Growth After 18-24 Hours
Gram Stain - Preliminary
[2024-08-26] MEDS: ROXICODONE 10 MG PO (20:56)
[2024-08-27] MEDS: MAXIPIME 1000 MG IV ×5 (00:12→23:09)
[2024-08-27] MEDS: STERILE WATER FOR INJECTION 10 ML IV ×5 (00:13→23:09)
[2024-08-27] MEDS: DILAUDID 0.5 MG IV ×5 (00:15→23:10)
[2024-08-27 02:46] VITALS: BP 109/64
[2024-08-27] MEDS: VANCOCIN 275 MG IV (05:39)
--- NOTE | 2024-08-27 06:58 | W.PN.ORTHO ---
Today's Communication / Plan
-
POD#1 left hip superficial I&D under the direction of Dr. Wood
--WBAT LLE. Ambulate with assistance of walker
--Hip precautions
--PT/OT
--Hemoglobin pending this AM
--IR aspiration fluid culture with NGTD
--OR Cultures obtained. Gram stain with many WBC, no organisms. Continue to follow
--Appreciate ID recommendations. Currently on cefepime and vancomycin
--Continue with pain management as needed
--Aspirin 325mg daily x4 weeks postop for DVT prophylaxis
--Maintain surgical dressing
--Case management consult for discharge planning
--Will continue to follow
Assessment
.
Distal Motor Intact: Yes
Dressing:
Clean, dry and intact.
Plan
.
Surgery / Date: Left hip superficial I&D 08/26/24 (Isaías)
DVT Prophylaxis: Aspirin
Activity:
Out of bed.
PT/OT
Subjective
.
.:
Patient resting comfortably in bed this morning. She does report pain overnight. She just got pain medications within the past few hours which is helping some.
Vital Signs and Labs
.
Vital Signs and Labs:
Temp Pulse Resp BP Pulse Ox
97.9 F 84 18 109/64 98
08/27/24 02:46 08/27/24 02:46 08/27/24 02:46 08/27/24 02:46 08/27/24 02:46
Physical Exam
-
Directed exam of LLE reveals surgical dressing in place with scant strikethrough to the center of the dressing. mild general tenderness to palpation of the lateral hip. thigh is soft and compressible. able to plantarflex/dorsiflex the ankle. calf
soft and nontender. NVI distally
[2024-08-27 08:00] VITALS: BP 102/57
[2024-08-27 08:36] LABS: Hematocrit 28.4 % (37.0-47.0); Hemoglobin 8.4 g/dL (12.0-16.0); Mean Corp Hgb Conc. 29.6 g/dL (33.0-37.0); Mean Corpuscular Hgb 17.9 pg (27.0-31.0); Mean Corpuscular Volume 60.6 fL (81.0-99.0); Mean Platelet Volume 9.4 fL (7.4-10.4); Platelet Count 427 10^3/uL (130-400); Red Blood Cell Count 4.69 10^6/uL (4.20-5.40); White Blood Cell Count 5.7 10^3/uL (4.8-10.8)
[2024-08-27 09:20] LABS: Blood Urea Nitrogen 8 mg/dl (7-17); Calcium 8.8 mg/dl (8.4-10.2); Carbon Dioxide 23 mmol/L (22-30); Chloride 102 mmol/L (98-107); Glucose 127 mg/dl (70-99); Potassium 4.8 mmol/L (3.5-5.1); Sodium 134 mmol/L (135-145)
[2024-08-27] MEDS: COLACE 100 MG PO ×2 (09:29→20:08)
[2024-08-27] MEDS: SENOKOT 17.2 MG PO ×2 (09:29→20:08)
[2024-08-27] MEDS: CELEBREX 200 MG PO (09:29)
[2024-08-27] MEDS: ZOLOFT 25 MG PO (09:29)
[2024-08-27] MEDS: BACTROBAN 2% OINTMENT 1 APPLIC NASAL ×2 (09:30→20:57)
[2024-08-27] MEDS: ASPIRIN 325 MG PO (09:30)
[2024-08-27] MEDS: FLUSH (NSS) 1 FLUSH IV (09:32)
[2024-08-27 09:44] LABS: Estimated Creatinine Clearance > 125 ml/min; eGFR > 60.00
--- NOTE | 2024-08-27 10:30 | CM ---
Addendum entered by Ana Maria Malin RN 08/27/24 12:43:
PT recommendation is outpatient therapy vs no needs.
Original Note:
Reviewed the chart notes and spoke with the patient at the bedside. Patient able to stand and side shuffle with use of rolling walker. ID following. IV abx. PT evaluation pending. CM continues to be available to patient/family and is monitoring
medical plan for needs at discharge.
Plan: Discharge plans will depend on the patient's progress.
[2024-08-27 11:34] VITALS: BP 116/70
--- NOTE | 2024-08-27 11:53 | W.PN.ID1 ---
Date of Service
Date of Service: August 27, 2024
Today's Communication
- c/w vancomycin and cefepime
Assessment / Plan
Superficial Surgical Site Infection
Class II obesity
- cultures sent from the OR will follow up - no growth to date
- aspiration of the hip joint - no fluid even with lavage - not suggestive of pji
- aspiration of more superficial fluid collection - no growth to date
- c/w vancomycin and cefepime
follow clinically
Chief Complaint
-: Other (surgical site infection )
Subjective / Review of Systems
afebrile
bp stable
some strikethrough
Vital Signs / Physical Exam
Vital Signs
Vital Signs
Temp Pulse Resp BP Pulse Ox
97.9 F 81 16 116/70 97
08/27/24 11:34 08/27/24 11:34 08/27/24 11:34 08/27/24 11:34 08/27/24 11:34
Physical Exam
Constitutional: No Acute Distress
Cardiovascular: Regular Rate and S1/S2; Negative Murmur or Rub
Pulmonary: Clear and Symmetric; Negative Wheezes or Rales
Gastrointestinal: Soft, Non Tender, Non Distended and Normal Bowel Sounds
Skin: Warm and Dry; Negative Rash or Jaundice
Wound: Other (dressing dry, intact, mild strikethrough)
Objective Data
Lab Data
Lab Results
08/27/24 08:12
08/27/24 08:12
ESR 27 mm/hour (0-20) H 08/25/24 13:13
Estimated Creat Clear > 125 ml/min 08/27/24 08:12
Total Bilirubin 0.3 mg/dl (0.2-1.3) 08/26/24 06:17
AST 19 U/L (14-36) 08/26/24 06:17
ALT 15 U/L (0-35) 08/26/24 06:17
Alkaline Phosphatase 42 U/L (38-126) 08/26/24 06:17
C-Reactive Protein < 5.00 mg/L (0.0-10.00) 08/25/24 13:13
Most recent labs reviewed.
Micro Results:
08/26/24 15:26 Tissue Culture - Preliminary
Hip - Left No Growth After 18-24 Hours
Gram Stain - Preliminary
08/25/24 12:45 Body Fluid Culture - Preliminary
Fluid No Growth After 18-24 Hours
Gram Stain - Preliminary
--- NOTE | 2024-08-27 13:12 | PHA.VAN.FU ---
Vancomycin Assessment / Plan
- Assessment
Renal Function: Stable
WBC's are: WNL
In the past 24 hrs, patient has been: Afebrile
Concomitant Antimicrobials: cefepime
- Dosing Plan
Adjust Regimen to: Vanc 1500mg Q12H starting at 1800
New Regimen Predicts: AUC (488), Peak (33.6), Trough (10.8)
Dosing Comments: utilized CrCL 125 ml/min instead of 100 ml/min given age
- Monitoring Plan
No level(s) ordered at this time: consider levels in next few days
- Follow Up
Pharmacy will continue to follow.
Vancomycin Follow UP
- -
Patient Age: 44
Patient Sex: Female
Vancomycin Day #: 2
Indication: Bone And Joint
Requesting Provider: Dr. Cohn
Pertinent Antimicrobial Allergies:
no pertinent antibiotic allergies
Height / Weight:
Height 5 ft 4.5 in
Actual Weight 102.512 kg
IBW in k.9
Adjusted BW in k.5
Pertinent Past Medical History: BMI~38, s/p total hip replacement 06/10/24
- Vital Signs / Lab Results
Temp Pulse Resp BP Pulse Ox
97.9 F 81 16 116/70 97
08/27/24 11:34 08/27/24 11:34 08/27/24 11:34 08/27/24 11:34 08/27/24 11:34
Lab Results - Hematology
08/25/24 08/26/24 08/27/24
13:13 06:17 08:12
WBC 5.1 4.7 L 5.7
Lab Results - Chemistry
08/25/24 08/26/24 08/27/24
13:13 06:17 08:12
BUN 5 L 8 8
Creatinine 0.6 0.6 0.6
Estimated Creat Clear > 125
Albumin 4.4 3.7
Microbiology Results
08/25/24 12:45 Body Fluid Culture - Preliminary
Fluid No Growth After 48 Hours
Gram Stain - Preliminary
08/26/24 15:26 Tissue Culture - Preliminary
Hip - Left No Growth After 18-24 Hours
Gram Stain - Preliminary
[2024-08-27] MEDS: DILAUDID 2 MG PO ×2 (13:13→20:08)
--- NOTE | 2024-08-27 13:39 | W.PN.HOSP.TC ---
Today's Communication/Plan
-
follow cultures and ID recs, remain on IV Cefepime/Vanco for now
pain control, PT/OT
Assessment / Plan
Assessment / Plan
Assessment:
L hip drainage c/f post-operative L hip infection and/or infected prosthesis
Hx of L hip OA s/p THR 06/10 (Dr. Metz)
- CT: Limited by metal artifact despite metal artifact reduction technique. Mild fluid distention of the greater trochanteric bursa. This demonstrates mild wall thickening, though without apparent significant enhancement. This may be reactive in
nature as opposed to infectious bursitis. Irregular linear soft tissue attenuation within the superficial and deep subcutaneous fat extending to the superficial fascial layer, consistent with scarring along the incision site. No other soft tissue
fluid collection is identified. No CT evidence to suggest osteomyelitis.
- s/p left hip superficial I&D 08/26. Follow ortho recs post-op
- follow cultures; on IV Cefepime/Vancomycin per ID
- continue pain control
History of iron deficiency anemia
History of occasional rectal bleeding likely hemorrhoidal
- follow Hb, 8.4 most recently
- low iron, consider PO ferrous sulfate if ok with ID
- outpatient Colonoscopy planned
History of constipation
ADHD
- continue Concerta
Strong family history of blood clots
Obesity
GERD
- continue omeprazole
DVT ppx: SCDs
Code: Full
Anticipated Discharge: > 48 hours
Subjective/Interval History
-
Date of Service: August 27, 2024
pain overnight into today, post-op pain, well controlled with Dilaudid
Objective Data
-
Labs:
Laboratory Results
08/27/24
08:12
WBC 5.7
Hgb 8.4 L
Hct 28.4 L
Plt Count 427 H
Sodium 134 L
Potassium 4.8
Chloride 102
Carbon Dioxide 23
BUN 8
Creatinine 0.6
Glucose 127 H
Calcium 8.8
Vital Signs:
Vital Signs
Temp Pulse Resp BP Pulse Ox
97.9 F 81 16 116/70 97
08/27/24 11:34 08/27/24 11:34 08/27/24 11:34 08/27/24 11:34 08/27/24 11:34
I&O
08/26/24 08/27/24 08/28/24
06:59 06:59 06:59
Intake Total 1200 / 1200 3080 / 3080
Balance 1200 / 1200 3080 / 3080
Physical Exam
-
General: No Apparent Distress
HEENT: Normocephalic and Atraumatic
Respiratory: Negative Wheezes
Cardiac: Regular Rhythm and S1/S2
GI: Soft and Nontender
Genito-urinary: No Costovertebral Tender
Musculoskeletal: No Edema
Neuro: AO x 3
Hematologic / Lymphatic: No Lymphadenopathy
Psych: Calm
Data Reviewed
-
Total Time Spent with Patient (in minutes): 41
Labs: Labs Reviewed by me
--- NOTE | 2024-08-27 13:56 | PTOTSP ---
pt currently demonstrates ability to complete simple ADLs, functonal transfers, ambulation with supervision assistance. pt does not currently require acute OT at this time. will sign off.
[2024-08-27 15:50] VITALS: BP 133/72
[2024-08-27] MEDS: VANCOCIN 530 MG IV (17:53)
[2024-08-27] MEDS: FLUSH (NSS) 3 FLUSH IV (17:54)
[2024-08-27 19:30] VITALS: BP 129/75
[2024-08-27] MEDS: PROTONIX 40 MG PO (20:15)
[2024-08-27 23:26] VITALS: BP 115/75
[2024-08-28] MEDS: VANCOCIN 530 MG IV ×2 (05:27→18:32)
[2024-08-28] MEDS: MAXIPIME 1000 MG IV ×4 (05:27→23:44)
[2024-08-28] MEDS: STERILE WATER FOR INJECTION 10 ML IV ×4 (05:27→23:44)
[2024-08-28] MEDS: DILAUDID 2 MG PO ×4 (05:37→22:34)
[2024-08-28 06:25] LABS: Hematocrit 26.9 % (37.0-47.0); Hemoglobin 7.9 g/dL (12.0-16.0); Mean Corp Hgb Conc. 29.4 g/dL (33.0-37.0); Mean Corpuscular Hgb 17.7 pg (27.0-31.0); Mean Corpuscular Volume 60.2 fL (81.0-99.0); Mean Platelet Volume 9.3 fL (7.4-10.4); Platelet Count 354 10^3/uL (130-400); Red Blood Cell Count 4.47 10^6/uL (4.20-5.40); Red Cell Dist. Width 17.9 % (11.5-14.5); White Blood Cell Count 6.4 10^3/uL (4.8-10.8)
[2024-08-28 06:50] LABS: Blood Urea Nitrogen 11 mg/dl (7-17); Calcium 8.6 mg/dl (8.4-10.2); Carbon Dioxide 26 mmol/L (22-30); Chloride 104 mmol/L (98-107); Estimated Creatinine Clearance > 125 ml/min; Glucose 119 mg/dl (70-99); Potassium 4.3 mmol/L (3.5-5.1); Sodium 135 mmol/L (135-145); eGFR > 60.00
[2024-08-28 07:20] VITALS: BP 128/68
--- NOTE | 2024-08-28 07:27 | W.PN.ORTHO ---
Today's Communication / Plan
-
POD#2 left hip superficial I&D under the direction of Dr. Wood
--WBAT LLE. Ambulate with assistance of walker
--Hip precautions
--PT/OT
--Hemoglobin pending this AM
--IR aspiration fluid culture with NGTD
--OR Cultures obtained. Gram stain with many WBC, no organisms. Continue to follow
--Appreciate ID recommendations. Currently on cefepime and vancomycin
--Continue with pain management as needed
--Aspirin 325mg daily x4 weeks postop for DVT prophylaxis
--Maintain surgical dressing
--Case management consult for discharge planning
--Will continue to follow
Assessment
.
Distal Motor Intact: Yes
Dressing:
Clean, dry and intact. Mildly increased strikethrough
Plan
.
Surgery / Date: Left hip superficial I&D 08/26/24 (Isaías)
Activity:
Out of bed.
PT/OT
Subjective
.
.:
Patient resting comfortably.
Vital Signs and Labs
.
Vital Signs and Labs:
Lab Results
08/28/24 06:09
08/28/24 06:09
Temp Pulse Resp BP Pulse Ox
97.8 F 71 18 115/75 97
08/27/24 23:26 08/27/24 23:26 08/27/24 23:26 08/27/24 23:26 08/27/24 23:26
[2024-08-28] MEDS: DILAUDID 0.5 MG IV (08:35)
[2024-08-28] MEDS: ASPIRIN 325 MG PO (08:38)
[2024-08-28] MEDS: ZOLOFT 25 MG PO (08:38)
[2024-08-28] MEDS: COLACE 100 MG PO ×2 (08:38→20:09)
[2024-08-28] MEDS: CELEBREX 200 MG PO (08:39)
[2024-08-28] MEDS: SENOKOT 17.2 MG PO ×2 (08:39→20:09)
--- NOTE | 2024-08-28 09:07 | PHA.VAN.FU ---
Vancomycin Assessment / Plan
- Assessment
Renal Function: Stable
WBC's are: WNL
In the past 24 hrs, patient has been: Afebrile
Concomitant Antimicrobials: cefepime
- Dosing Plan
Continue: Vanc 1500mg Q12H
- Monitoring Plan
Peak Level: 08/28 21:00
Trough Level: 08/29 05:30
Monitoring Comments: levels to be drawn after 3rd dose of 1500mg
- Follow Up
Pharmacy will continue to follow.
Vancomycin Follow UP
- -
Patient Age: 44
Patient Sex: Female
Vancomycin Day #: 3
Indication: Bone And Joint
Requesting Provider: Dr. Cohn
Pertinent Antimicrobial Allergies:
no pertinent antibiotic allergies
Height / Weight:
Height 5 ft 4.5 in
Actual Weight 102.512 kg
IBW in k.9
Adjusted BW in k.5
Pertinent Past Medical History: BMI~38, s/p total hip replacement 06/10/24
- Vital Signs / Lab Results
Temp Pulse Resp BP Pulse Ox
97.9 F 77 16 128/68 97
08/28/24 07:20 08/28/24 07:20 08/28/24 07:20 08/28/24 07:20 08/28/24 07:20
Lab Results - Hematology
08/25/24 08/26/24 08/27/24
13:13 06:17 08:12
WBC 5.1 4.7 L 5.7
08/28/24
06:09
WBC 6.4
Lab Results - Chemistry
08/25/24 08/26/24 08/27/24
13:13 06:17 08:12
BUN 5 L 8 8
Creatinine 0.6 0.6 0.6
Estimated Creat Clear > 125
Albumin 4.4 3.7
08/28/24
06:09
BUN 11
Creatinine 0.6
Estimated Creat Clear > 125
Albumin
Microbiology Results
08/25/24 12:45 Body Fluid Culture - Preliminary
Fluid No Growth After 48 Hours
Gram Stain - Preliminary
08/26/24 15:26 Tissue Culture - Preliminary
Hip - Left No Growth After 18-24 Hours
Gram Stain - Preliminary
--- NOTE | 2024-08-28 11:22 | W.PN.ID1 ---
Date of Service
Date of Service: August 28, 2024
Today's Communication
- would follow OR cultures another day
- continue vancomycin and cefepime for now
- if no isolate found and patient remains stable, then could switch to augmentin 875/125 mg po bid and doxycycline 100 mg po bid both for 11 more days tomorrow (14 day total course)
Assessment / Plan
Superficial Surgical Site Infection
Class II obesity
- would follow OR cultures another day
- continue vancomycin and cefepime for now
- esr and crp in the AM
- if no isolate found and patient remains stable, then could switch to augmentin 875/125 mg po bid and doxycycline 100 mg po bid both for 11 more days tomorrow (14 day total course)
Chief Complaint
-: Other (surgical site infection )
Subjective / Review of Systems
afebrile
bp stable
no complaints
Vital Signs / Physical Exam
Vital Signs
Vital Signs
Temp Pulse Resp BP Pulse Ox
97.9 F 77 16 128/68 97
08/28/24 07:20 08/28/24 07:20 08/28/24 07:20 08/28/24 07:20 08/28/24 07:20
Physical Exam
Constitutional: No Acute Distress
Cardiovascular: Regular Rate
Pulmonary: Symmetric and Non Labored
Gastrointestinal: Non Tender and Non Distended
Skin: Dry; Negative Rash or Jaundice
Neurological: Awake
Objective Data
Lab Data
Lab Results
08/28/24 06:09
08/28/24 06:09
ESR 27 mm/hour (0-20) H 08/25/24 13:13
Estimated Creat Clear > 125 ml/min 08/28/24 06:09
Total Bilirubin 0.3 mg/dl (0.2-1.3) 08/26/24 06:17
AST 19 U/L (14-36) 08/26/24 06:17
ALT 15 U/L (0-35) 08/26/24 06:17
Alkaline Phosphatase 42 U/L (38-126) 08/26/24 06:17
C-Reactive Protein < 5.00 mg/L (0.0-10.00) 08/25/24 13:13
Most recent labs reviewed.
Micro Results:
08/26/24 15:26 Tissue Culture - Preliminary
Hip - Left No Growth After 48 Hours
Gram Stain - Preliminary
08/25/24 12:45 Body Fluid Culture - Final
Fluid No Growth After 72 Hours
Gram Stain - Final
--- NOTE | 2024-08-28 11:32 | W.PN.UPDATE ---
Update Note
Progress Note Update
I'm very surprised her cultures from the OR were negative. These were done with no antibiotics before whatsoever and the sample was about 3cc of 100% purulent material. Even though the cults have been neg there is no doubt it was infection. I
emailed [facility] to inquire about our culture assay and to be sure everything is ok with it and to ask about N[employer] sequencing.
--- NOTE | 2024-08-28 12:54 | W.PN.HOSP.TC ---
Today's Communication/Plan
-
dc IV pain meds, encourage oral
Abx per ID
outpatient PT/OT
Assessment / Plan
Assessment / Plan
Assessment:
L hip drainage c/f post-operative L hip infection and/or infected prosthesis
Hx of L hip OA s/p THR 06/10 (Dr. Metz)
- CT: Limited by metal artifact despite metal artifact reduction technique. Mild fluid distention of the greater trochanteric bursa. This demonstrates mild wall thickening, though without apparent significant enhancement. This may be reactive in
nature as opposed to infectious bursitis. Irregular linear soft tissue attenuation within the superficial and deep subcutaneous fat extending to the superficial fascial layer, consistent with scarring along the incision site. No other soft tissue
fluid collection is identified. No CT evidence to suggest osteomyelitis.
- s/p left hip superficial I&D 08/26. Follow ortho recs post-op
- follow cultures; on IV Cefepime/Vancomycin per ID
- continue pain control
History of iron deficiency anemia
History of occasional rectal bleeding likely hemorrhoidal
- follow Hb, 7.9 most recently
- low iron, consider PO ferrous sulfate if ok with ID
- outpatient Colonoscopy planned
History of constipation
ADHD
- continue Concerta
Strong family history of blood clots
Obesity
GERD
- continue omeprazole
DVT ppx: SCDs
Code: Full
Anticipated Discharge: Within 24 hours
Subjective/Interval History
-
Date of Service: August 28, 2024
denies any new complaints
Objective Data
-
Labs:
Laboratory Results
08/28/24
06:09
WBC 6.4
Hgb 7.9 L
Hct 26.9 L
Plt Count 354
Sodium 135
Potassium 4.3
Chloride 104
Carbon Dioxide 26
BUN 11
Creatinine 0.6
Glucose 119 H
Calcium 8.6
Vital Signs:
Vital Signs
Temp Pulse Resp BP Pulse Ox
97.9 F 77 16 128/68 97
08/28/24 07:20 08/28/24 07:20 08/28/24 07:20 08/28/24 07:20 08/28/24 07:20
I&O
08/27/24 08/28/24 08/29/24
06:59 06:59 06:59
Intake Total 308 / 3080 2089
Balance 3080 / 3080 2089
Physical Exam
-
General: No Apparent Distress
HEENT: Normocephalic and Atraumatic
Respiratory: Negative Wheezes
Cardiac: Regular Rhythm and S1/S2
GI: Soft and Nontender
Genito-urinary: No Costovertebral Tender
Musculoskeletal: No Edema
Neuro: AO x 3
Hematologic / Lymphatic: No Lymphadenopathy
Psych: Calm
Data Reviewed
-
Total Time Spent with Patient (in minutes): 41
Labs: Labs Reviewed by me
[2024-08-28 14:42] VITALS: BP 126/78; PULSE 79; O2SAT 100
[2024-08-28 15:20] VITALS: BP 126/74
[2024-08-28 21:31] LABS: Vancomycin Peak 30.8 ug/ml (18-26)
[2024-08-28 23:35] VITALS: BP 111/61
[2024-08-29] MEDS: DILAUDID 2 MG PO ×2 (04:33→08:54)
[2024-08-29] MEDS: MAXIPIME 1000 MG IV (05:28)
[2024-08-29] MEDS: STERILE WATER FOR INJECTION 10 ML IV (05:28)
[2024-08-29] MEDS: VANCOCIN 530 MG IV (05:30)
[2024-08-29 05:32] LABS: Hematocrit 25.7 % (37.0-47.0); Hemoglobin 7.8 g/dL (12.0-16.0); Mean Corp Hgb Conc. 30.4 g/dL (33.0-37.0); Mean Corpuscular Hgb 18.2 pg (27.0-31.0); Mean Platelet Volume 9.6 fL (7.4-10.4); Platelet Count 329 10^3/uL (130-400); Red Blood Cell Count 4.28 10^6/uL (4.20-5.40); Red Cell Dist. Width 17.8 % (11.5-14.5); White Blood Cell Count 5.3 10^3/uL (4.8-10.8)
[2024-08-29 05:53] LABS: Vancomycin Trough 13.2 ug/ml (5-20)
[2024-08-29 05:57] LABS: Blood Urea Nitrogen 11 mg/dl (7-17); Calcium 8.3 mg/dl (8.4-10.2); Carbon Dioxide 28 mmol/L (22-30); Chloride 103 mmol/L (98-107); Estimated Creatinine Clearance > 125 ml/min; Glucose 103 mg/dl (70-99); Potassium 4.7 mmol/L (3.5-5.1); Sodium 135 mmol/L (135-145); eGFR > 60.00
[2024-08-29 06:00] LABS: C-Reactive Protein < 5.00 mg/L (0.0-10.00)
[2024-08-29 06:19] LABS: Erythrocyte Sed Rate 25 mm/hour (0-20)
[2024-08-29 07:25] VITALS: BP 104/58
[2024-08-29] MEDS: ASPIRIN 325 MG PO (08:02)
[2024-08-29] MEDS: CELEBREX 200 MG PO (08:02)
[2024-08-29] MEDS: COLACE PO (08:03)
[2024-08-29] MEDS: ZOLOFT 25 MG PO (08:03)
[2024-08-29] MEDS: SENOKOT PO (08:03)
--- NOTE | 2024-08-29 09:09 | W.PN.ORTHO ---
Today's Communication / Plan
-
POD#3 left hip superficial I&D under the direction of Dr. Wood
--WBAT LLE. Ambulate with assistance of walker
--Hip precautions
--PT/OT
--IR aspiration fluid culture with NGTD
--OR Cultures obtained. Gram stain with many WBC, no organisms. Continue to follow, NGTD
--Appreciate ID recommendations. Currently on cefepime and vancomycin
--Continue with pain management as needed
--Aspirin 325mg daily x4 weeks postop for DVT prophylaxis
--Maintain surgical dressing
--Case management consult for discharge planning
--Will continue to follow while admitted.
Assessment
.
Distal Motor Intact: Yes
Dressing:
Clean, dry and intact.
Plan
.
Surgery / Date: Left hip superficial I&D 08/26/24 (Isaías)
Activity:
Out of bed.
PT/OT
Subjective
.
.:
Patient resting comfortably.
Vital Signs and Labs
.
Vital Signs and Labs:
Lab Results
08/29/24 05:18
08/29/24 05:18
Temp Pulse Resp BP Pulse Ox
97.4 F 75 14 104/58 100
08/29/24 07:25 08/29/24 07:25 08/29/24 07:25 08/29/24 07:25 08/29/24 07:25
--- NOTE | 2024-08-29 09:41 | PHA.VAN.FU ---
Vancomycin Assessment / Plan
- Assessment
Renal Function: Stable
WBC's are: Stable
In the past 24 hrs, patient has been: Afebrile
Concomitant Antimicrobials: Cefepime
- Assessment - Therapeutic Drug Monitoring
Extrapolated Cmax (mcg/mL): 34.5
Peak level was drawn: Appropriately
Extrapolated Cmin (mcg/mL): 11.6
Trough Drawn: Appropriately
Levels were drawn: At steady state (after 3rd maintenance dose of 1500mg q12h)
Calculated AUC (mcg*h/mL): 511
Calculated ke: 34.5
Calculated half life (H): 6.7
Calculated Vd (L): 56
Calculated Vanc CL (ml/min): 97
- Dosing Plan
Continue: vanc 1500mg q12
- Monitoring Plan
No level(s) ordered at this time: .
Level(s) appropriate: Recheck trough at minimum of weekly intervals, Repeat sooner for changes in renal function or clinical status
Next Level Due (Date): ~09/04
- Follow Up
Pharmacy will continue to follow.
Vancomycin Follow UP
- -
Patient Age: 44
Patient Sex: Female
Vancomycin Day #: 4
Indication: Bone And Joint
Requesting Provider: Dr. Cohn
Pertinent Antimicrobial Allergies:
no pertinent antibiotic allergies
Height / Weight:
Height 5 ft 4.5 in
Actual Weight 102.512 kg
IBW in k.9
Adjusted BW in k.5
Pertinent Past Medical History: BMI~38, s/p total hip replacement 06/10/24
- Vital Signs / Lab Results
Temp Pulse Resp BP Pulse Ox
97.4 F 75 14 104/58 100
08/29/24 07:25 08/29/24 07:25 08/29/24 07:25 08/29/24 07:25 08/29/24 07:25
Lab Results - Hematology
08/27/24 08/28/24 08/29/24
08:12 06:09 05:18
WBC 5.7 6.4 5.3
Lab Results - Chemistry
08/27/24 08/28/24 08/29/24
08:12 06:09 05:18
BUN 8 11 11
Creatinine 0.6 0.6 0.6
Estimated Creat Clear > 125 > 125 > 125
Microbiology Results
08/26/24 15:26 Tissue Culture - Preliminary
Hip - Left No Growth After 48 Hours
Gram Stain - Preliminary
08/25/24 12:45 Body Fluid Culture - Final
Fluid No Growth After 72 Hours
Gram Stain - Final
Therapeutic Drug Monitoring
Vancomycin Peak 30.8 ug/ml (18-26) H 08/28/24 21:08
Vancomycin Trough 13.2 ug/ml (5-20) 08/29/24 05:18
--- NOTE | 2024-08-29 11:18 | CM ---
Patient seen at bedside. Patient has script on chart. Patient plan is for discharge home with significant other and o other needs at this time. Patient uses the [facility] in [place] for pharmacy needs. CM will continue to follow for discharge planning
needs.
Plan; home with supports no needs
--- NOTE | 2024-08-29 11:38 | W.PN.HOSP.TC ---
Today's Communication/Plan
-
dc to home
Assessment / Plan
Assessment / Plan
Assessment:
L hip drainage c/f post-operative L hip infection and/or infected prosthesis
Hx of L hip OA s/p THR 06/10 (Dr. Metz)
- CT: Limited by metal artifact despite metal artifact reduction technique. Mild fluid distention of the greater trochanteric bursa. This demonstrates mild wall thickening, though without apparent significant enhancement. This may be reactive in
nature as opposed to infectious bursitis. Irregular linear soft tissue attenuation within the superficial and deep subcutaneous fat extending to the superficial fascial layer, consistent with scarring along the incision site. No other soft tissue
fluid collection is identified. No CT evidence to suggest osteomyelitis.
- s/p left hip superficial I&D 08/26. Follow ortho recs post-op
- no growth on culture; dc per ID on augmentin 875/125 mg po bid and doxycycline 100 mg po bid both for 11 more days today (14 day total course)
- continue pain control
History of iron deficiency anemia
History of occasional rectal bleeding likely hemorrhoidal
- follow Hb, 7.9 most recently
- low iron
- continue oral iron - lunch time to avoid Doxy interference
- outpatient Colonoscopy planned
History of constipation
ADHD
- continue Concerta
Strong family history of blood clots
Obesity
GERD
- continue omeprazole
DVT ppx: SCDs
Code: Full
More than 30 minutes spent in discharge including
Final examination of the patient
Summarizing hospital stay
Instructions for continuing care to all relevant caregivers
Preparation of discharge records, prescriptions, and referral forms
Total time spent (in minutes): 41
Anticipated Discharge: Today
Subjective/Interval History
-
Date of Service: August 29, 2024
no complaints presently
Objective Data
-
Labs:
Laboratory Results
08/29/24
05:18
WBC 5.3
Hgb 7.8 L
Hct 25.7 L
Plt Count 329
Sodium 135
Potassium 4.7
Chloride 103
Carbon Dioxide 28
BUN 11
Creatinine 0.6
Glucose 103 H
Calcium 8.3 L
Vital Signs:
Vital Signs
Temp Pulse Resp BP Pulse Ox
97.4 F 75 14 104/58 100
08/29/24 07:25 08/29/24 07:25 08/29/24 07:25 08/29/24 07:25 08/29/24 07:25
I&O
08/28/24 08/29/24 08/30/24
06:59 06:59 06:59
Intake Total 2089 480 / 480
Balance 2089 480 / 480
Physical Exam
-
General: No Apparent Distress
HEENT: Normocephalic and Atraumatic
Respiratory: Negative Wheezes
Cardiac: Regular Rhythm and S1/S2
GI: Soft and Nontender
Musculoskeletal: No Edema
Neuro: AO x 3
Psych: Calm
Data Reviewed
-
Total Time Spent with Patient (in minutes): 41
Labs: Labs Reviewed by me
--- NOTE | 2024-08-29 11:44 | W.DS.TRANS ---
DC Summary - Product Support Analyst
-
Discharge Instructions:
Discharge Diagnosis/Procedures superficial left hip infection
Diet Regular
Activity As tolerated
Bathing Restrictions None
Other Services PT,OT
Instructions:
Stand-Alone Forms:
Changes to Home Medications: No
Discharge Medications:
DC Medications w/original date entered in [employer]
celecoxib 100 mg capsule (Celebrex) 100 mg PO BIDPRN PRN mild pain 08/26/24
cyclobenzaprine 5 mg tablet 5 mg PO HSPRN PRN spasms 08/26/24
gabapentin 300 mg capsule 300 mg PO TIDPRN PRN mild foot pains 08/26/24
lidocaine 4 % topical patch 2 patch topical DAILYPRN PRN lower back and shoulder pains 08/26/24
methylphenidate HCl 54 mg tablet,extended release 24 hr (Concerta) 54 mg PO DAILY 08/26/24
omeprazole magnesium 20 mg tablet,delayed release (Prilosec OTC) 20 mg PO DAILYPRN PRN gerd 08/26/24
sertraline 25 mg tablet 25 mg PO DAILY 08/26/24
amoxicillin 875 mg-potassium clavulanate 125 mg tablet 1 tab PO BID #22 tabs 08/29/24
aspirin 325 mg tablet 325 mg PO DAILY #30 tabs 08/29/24
doxycycline monohydrate 100 mg capsule 100 mg PO BID #22 caps 08/29/24
hydromorphone 2 mg tablet 2 mg PO Q4HPRN PRN moderate-severe pain #30 tabs 08/29/24
Home Medication Changes
Pending Results: No
Total time spent discharging patient (in min): 41
== END 2024-08-29 13:11 | disposition home or self-care (01) | DRG 858 ==
LOC: 2 SOUTH 15:20
PROVIDERS: Physician Assistant Medical; Radiology Diagnostic Radiology; ADMITTING PHYSICIAN Hospitalist; ATTENDING PHYSICIAN Internal Medicine; CONSULT PHYSICIAN Orthopaedic Surgery; CONSULT PHYSICIAN Student in an Organized Health Care Education/Training Program
PROC: 3E1U38Z Irrigation of Joints using Irrigating Substance, Percutaneous Approach (ICD-10-PCS; 2024-08-25)
PROC: 0J9M3ZX Drainage of Left Upper Leg Subcutaneous Tissue and Fascia, Percutaneous Approach, Diagnostic (ICD-10-PCS; 2024-08-25)
PROC: 0JBM0ZZ Excision of Left Upper Leg Subcutaneous Tissue and Fascia, Open Approach (ICD-10-PCS; 2024-08-25)
DX: T81.41XA Infection following a procedure, superficial incisional surgical site, initial encounter (principal); D50.9 Iron deficiency anemia, unspecified; F41.9 Anxiety disorder, unspecified; F90.9 Attention-deficit hyperactivity disorder, unspecified type; K21.9 Gastro-esophageal reflux disease without esophagitis; Z96.642 Presence of left artificial hip joint; K64.9 Unspecified hemorrhoids; E66.812 Obesity, class 2; Z68.38 Body mass index [BMI] 38.0-38.9, adult; Y83.8 Other surgical procedures as the cause of abnormal reaction of the patient, or of later complication, without mention of misadventure at the time of the procedure
CPT/HCPCS: 88304; 20610; 36415; 73502; 73702; 76942; 77002; 80048; 80053; 80202; 82607; 82728; 82746; 83540; 83550; 85025; 85027; 85652; 86140; 86850; 86900; 86901; 87015; 87070; 87176; 87205; 97116; 97162; 97166; 97530; Q9967

== ENCOUNTER 2024-10-01 15:08 | Outpatient (RCR) | payer OTHER, SELFPAY | END 2024-10-01 23:59 | disposition home or self-care (01) | LOC: RPT 15:08 | PROVIDERS: ATTENDING PHYSICIAN Orthopaedic Surgery; FAMILY PHYSICIAN Nurse Practitioner | DX: M25.561 Pain in right knee (principal); M25.562 Pain in left knee; Z73.6 Limitation of activities due to disability; R26.2 Difficulty in walking, not elsewhere classified; M62.81 Muscle weakness (generalized); R26.89 Other abnormalities of gait and mobility; M16.0 Bilateral primary osteoarthritis of hip; Z96.642 Presence of left artificial hip joint | CPT/HCPCS: 97110; 97112; 97116; 97162; 97530 ==

== ENCOUNTER 2024-10-08 07:42 | Outpatient (RCR) | payer OTHER, SELFPAY ==
[2024-10-08 07:55] VITALS: BP 124/81
[2024-10-08] MEDS: VENOFER 110 MG IV (08:17)
[2024-10-08] MEDS: NSS 250 IV (08:17)
[2024-10-08 09:33] VITALS: BP 130/69
== END 2024-10-09 08:38 | disposition home or self-care (01) ==
LOC: OID 07:42
PROVIDERS: ATTENDING PHYSICIAN Nurse Practitioner; FAMILY PHYSICIAN Physician Assistant
DX: D50.0 Iron deficiency anemia secondary to blood loss (chronic) (principal); T45.4X5A Adverse effect of iron and its compounds, initial encounter; Y93.89 Activity, other specified
CPT/HCPCS: 96365; J1756

== ENCOUNTER 2024-10-29 08:51 | Outpatient (RCR) | payer OTHER, SELFPAY ==
[2024-10-15 09:00] VITALS: BP 120/45
[2024-10-15] MEDS: VENOFER 110 MG IV (09:06)
[2024-10-15] MEDS: NSS 250 IV (09:06)
[2024-10-15 10:50] VITALS: BP 114/69
[2024-10-22 14:40] VITALS: BP 118/93
[2024-10-22] MEDS: VENOFER 110 MG IV (14:59)
[2024-10-22 16:03] VITALS: BP 119/65
[2024-10-29 09:00] VITALS: BP 102/85
[2024-10-29] MEDS: NSS 250 IV (09:27)
[2024-10-29] MEDS: VENOFER 110 MG IV (09:28)
[2024-10-29 10:50] VITALS: BP 111/61
== END 2024-11-05 07:40 | disposition home or self-care (01) ==
LOC: OID 08:51
PROVIDERS: ATTENDING PHYSICIAN Nurse Practitioner; FAMILY PHYSICIAN Physician Assistant
DX: D50.0 Iron deficiency anemia secondary to blood loss (chronic) (principal); T45.4X5A Adverse effect of iron and its compounds, initial encounter; Y93.89 Activity, other specified; Z59.71 Insufficient health insurance coverage
CPT/HCPCS: 96361; 96365; J1756

== ENCOUNTER 2024-11-04 13:58 | Outpatient (RCR) | payer OTHER, SELFPAY | END 2024-11-04 23:59 | disposition home or self-care (01) | LOC: RPT 13:58 | PROVIDERS: ATTENDING PHYSICIAN Orthopaedic Surgery; FAMILY PHYSICIAN Nurse Practitioner | DX: Z47.1 Aftercare following joint replacement surgery (principal); M25.561 Pain in right knee (principal); M25.562 Pain in left knee; Z73.6 Limitation of activities due to disability; R26.2 Difficulty in walking, not elsewhere classified; M62.81 Muscle weakness (generalized); R26.89 Other abnormalities of gait and mobility; M16.0 Bilateral primary osteoarthritis of hip; Z96.642 Presence of left artificial hip joint; Z96.643 Presence of artificial hip joint, bilateral | CPT/HCPCS: 97110; 97112; 97161; 97530 ==

== ENCOUNTER 2024-11-09 08:40 | Outpatient (RCR) | payer OTHER, SELFPAY ==
[2024-11-09 09:19] VITALS: BP 115/60
[2024-11-09] MEDS: VENOFER 110 MG IV (09:26)
[2024-11-09] MEDS: NSS 250 IV (09:26)
[2024-11-09 10:45] VITALS: BP 112/65
== END 2024-11-10 14:07 | disposition home or self-care (01) ==
LOC: OID 08:40
PROVIDERS: ATTENDING PHYSICIAN Nurse Practitioner; FAMILY PHYSICIAN Physician Assistant
DX: D50.0 Iron deficiency anemia secondary to blood loss (chronic) (principal); T45.4X5A Adverse effect of iron and its compounds, initial encounter; Y93.89 Activity, other specified; Z59.71 Insufficient health insurance coverage
CPT/HCPCS: 96361; 96365; J1756

== ENCOUNTER 2024-12-07 15:21 | Outpatient (RCR) | payer OTHER, SELFPAY | END 2024-12-07 23:59 | disposition home or self-care (01) | LOC: RPT 15:21 | PROVIDERS: ATTENDING PHYSICIAN Orthopaedic Surgery; FAMILY PHYSICIAN Nurse Practitioner | DX: Z47.1 Aftercare following joint replacement surgery (principal); Z96.643 Presence of artificial hip joint, bilateral; M25.561 Pain in right knee; M25.562 Pain in left knee; Z73.6 Limitation of activities due to disability; R26.2 Difficulty in walking, not elsewhere classified; R26.89 Other abnormalities of gait and mobility; M62.81 Muscle weakness (generalized); M16.0 Bilateral primary osteoarthritis of hip; Z96.642 Presence of left artificial hip joint | CPT/HCPCS: 97110; 97530 ==

== ENCOUNTER 2024-12-28 15:02 | Outpatient (RCR) | payer OTHER, SELFPAY | END 2024-12-28 23:59 | disposition home or self-care (01) | LOC: RPT 15:02 | PROVIDERS: ATTENDING PHYSICIAN Orthopaedic Surgery; FAMILY PHYSICIAN Nurse Practitioner | DX: Z47.1 Aftercare following joint replacement surgery (principal); Z96.643 Presence of artificial hip joint, bilateral; M25.561 Pain in right knee; M25.562 Pain in left knee; R26.2 Difficulty in walking, not elsewhere classified; Z73.6 Limitation of activities due to disability; R26.89 Other abnormalities of gait and mobility; M62.81 Muscle weakness (generalized); M16.0 Bilateral primary osteoarthritis of hip; Z96.642 Presence of left artificial hip joint | CPT/HCPCS: 97110; 97112; 97530 ==

== ENCOUNTER 2025-01-13 13:11 | Outpatient (RCR) | payer OTHER, SELFPAY | END 2025-01-13 23:59 | disposition home or self-care (01) | LOC: RPT 13:11 | PROVIDERS: ATTENDING PHYSICIAN Orthopaedic Surgery; FAMILY PHYSICIAN Nurse Practitioner | DX: Z47.1 Aftercare following joint replacement surgery (principal); M25.561 Pain in right knee; M25.562 Pain in left knee; Z73.6 Limitation of activities due to disability; R26.2 Difficulty in walking, not elsewhere classified; R26.89 Other abnormalities of gait and mobility; M62.81 Muscle weakness (generalized); Z96.643 Presence of artificial hip joint, bilateral; M16.0 Bilateral primary osteoarthritis of hip; Z96.642 Presence of left artificial hip joint | CPT/HCPCS: 97110; 97530 ==